=== PATIENT | male | born 1960 | race Caucasian/White ===

== ENCOUNTER 2019-08-22 06:04 | Inpatient (IN) | payer OTHER ==
--- NOTE | 2019-08-19 10:57 | PCM.PREANE ---
Preanesthetic Assessment - Anesthesia/Transfusion/Family Hx Anesthesia History: Prior Anesthesia Without Reaction Family History of Anesthesia Reaction: No Transfusion History: No Prior Transfusion(s) Intubation History: Unknown - Review of Systems General: No Symptoms Pulmonary: No Symptoms (ETOH: occasionally), Cough Cardiovascular: No Symptoms (Elevated cholesterol) Gastrointestinal: No Symptoms Neurological: No Symptoms (Back Surgery: [id number]) Other: Reports: Sinus Problem (history of nose surgeries/no problems) - Physical Assessment NPO Status Date: 08/21/19 NPO Status Time: 21:30 Vital Signs: HR:71 BP:155/93 Resp:16 Temp:97.4 Sat:97% Height: 1.74 m Weight: 92.986 kg ASA Class: 2 Mental Status: Alert & Oriented x3 Airway Class: Mallampati = 2 Dentition: Reports: Normal Dentition, [place](s), [place] Thyro-Mental Finger Breadths: 3 Mouth Opening Finger Breadths: 3 ROM/Head Extension: Full Lungs: Clear to Auscultation, Normal Respiratory Effort Cardiovascular: Regular Rate, Regular Rhythm, No Murmurs - Lab Values: All labs reviewed and noted and within acceptable ranges to proceed with scheduled procedure. - Imaging/EKG Impressions: EKG: SR rate=69 CXR: negative Echocardiogram:EF= 50-55%, Grade I diastolic dysfunction, mildly dilated left atrium. - Allergies Allergies/Adverse Reactions: Allergies Allergy/AdvReac Type Severity Reaction Status Date / Time No Known Allergies Allergy Verified 08/19/19 15:14 - Anesthesia Plan Pre-Op Medication Ordered: Other (PreOp Meds:lyrica, tylenol, oxycodone all P.O. at 0625) - Acknowledgements Anesthesia Type Planned: Spinal (Right Adductor Canal Block under US guidance for post operative pain control requested by Dr. Quach.) Pt an Appropriate Candidate for the Planned Anesthesia: Yes Alternatives and Risks of Anesthesia Discussed w Pt/Guardian: Yes Pt/Guardian Understands and Agrees with Anesthesia Plan: Yes PreAnesthesia Questionnaire Other HEENT History: wears glasses - Past Surgical History Other Musculoskeletal Surgeries/Procedures:: osteoarthritis L knee, L knee pain , R hip pain, bunionectomy L foot, Left knee surgery x 2, nose surgery x 4, R rotator cuff repair 1997, back surgery x 3. - HOME MEDS Home Medications: Home Meds Fish Oil/[place]-3 Fatty Acids [Fish Oil 1,000 MG] 1,000 mg PO DAILY 08/10/15 [ History] Cholecalciferol (Vitamin D3) [Vitamin D3] 5,000 unit PO DAILY 08/19/19 [History] Multivitamin [Daily Multiple Vitamin] 2 tab PO DAILY 08/19/19 [History] traMADol [Ultram] 50 mg PO Q4H PRN 08/19/19 [History] - CURRENT (IN HOUSE) MEDS Current Meds: Current Medications Lactated Ringer's (Ringers, Lactated) 1,000 mls @ 125 mls/hr IV ASDIRECTED MAICOL Stop: 08/22/19 23:00 Lidocaine/Sodium Bicarbonate (Buffered Lidocaine 1% In Ns 8.4%) 0.25 ml IDERM ONETIME PRN PRN Reason: Prior to IV Start Stop: 08/22/19 18:00 Sodium Chloride (Saline Flush) 10 ml FLUSH ASDIRECTED PRN PRN Reason: Keep Vein Open Stop: 08/22/19 18:00
[~2019-08-22 06:04] MED LIST: EPINEPHrine 1 MG/ML SDV ONE; Lidocaine 1%/Sod Bicarbonate in NS 8.4% 1 ML Syringe IDERM PRN; Pregabalin 25 MG Cap PO SCH; Ropivacaine 0.5% 5 MG/ML 30 ML SDV ONE; Sodium Chloride 0.9% 10 ML Syringe FLUSH PRN
[2019-08-22] MEDS ORDERED: Acetaminophen 325 MG Tab PO SCH (06:05)
[2019-08-22] MEDS ORDERED: oxyCODONE ER 10 MG TAB.ER PO SCH (06:06)
[2019-08-22] MEDS ORDERED: Lactated Ringers 1,000 ML ONE ×2 (06:23→08:13)
[2019-08-22] MEDS ORDERED: Lidocaine 1% 6 ML ONE (06:23)
[2019-08-22] MEDS ORDERED: Ketorolac 30 MG/ML SDV ONE (06:23)
[2019-08-22] MEDS ORDERED: Propofol 200 MG/20 ML SDV ONE ×2 (06:23→07:54)
[2019-08-22] MEDS ORDERED: Phenylephrine/Normal Saline 100 MCG/ML 10 ML Syringe ONE (06:23)
[2019-08-22] MEDS ORDERED: ceFAZolin 1 GM Vial ONE (06:23)
[2019-08-22] MEDS ORDERED: Ondansetron 4 MG/2 ML SDV ONE (06:23)
[2019-08-22] MEDS ORDERED: Midazolam 1 MG/ML 2 ML SDV ONE (06:24)
[2019-08-22] MEDS ORDERED: Ketamine 500 mg/10 ML MDV ONE (06:24)
[2019-08-22] MEDS ORDERED: fentaNYL 100 MCG/2 ML SDV ONE (06:24)
[2019-08-22] MEDS: Lactated Ringers 1,000 ML IV SCH ×3 (06:39→17:51)
[2019-08-22] MEDS ORDERED: Bisacodyl 5 MG Tab PO PRN (06:42)
[2019-08-22] MEDS ORDERED: Morphine 8 MG, EPINEPHrine 0.3 MG, Cefuroxime 750 MG, Ketorolac 30 MG, Sodium Chloride ... ONE ×5 (06:42)
[2019-08-22] MEDS ORDERED: Morphine 2 MG/ML Syringe IVPUSH PRN (06:42)
[2019-08-22] MEDS ORDERED: Ondansetron 4 MG/2 ML SDV IVPUSH PRN ×2 (06:42→07:34)
[2019-08-22] MEDS ORDERED: Naloxone 0.4 MG/ML SDV IVPUSH PRN (06:42)
[2019-08-22] MEDS ORDERED: Magnesium Hydroxide 400 MG/5 ML Susp 30 ML Cup PO PRN (06:42)
[2019-08-22] MEDS ORDERED: Sennosides 8.6 MG Tab PO PRN (06:42)
[2019-08-22] MEDS ORDERED: diphenhydrAMINE 50 MG/ML SDV IVPUSH PRN (07:34)
[2019-08-22] MEDS ORDERED: ePHEDrine 50 MG/ML SDV IVPUSH PRN (07:34)
[2019-08-22] MEDS ORDERED: HYDROmorphone 0.5 MG/0.5 ML Syringe IVPUSH PRN (07:34)
[2019-08-22] MEDS ORDERED: fentaNYL 100 MCG/2 ML SDV IVPUSH PRN (07:34)
[2019-08-22] MEDS ORDERED: Phenylephrine 1 MG in Sodium Chloride 0.9% 10 ML IV SCH (07:45)
[2019-08-22] MEDS ORDERED: ePHEDrine/Normal Saline 25 MG/5 ML Syringe ONE (08:01)
[2019-08-22] MEDS: Iodine/Sodium Iodide 2% Tincture 30 ML Bottle ONE ×2 (08:04→08:18)
[2019-08-22] MEDS: ceFAZolin 1 GM Vial ONE ×2 (08:05→08:23)
[2019-08-22] MEDS: Morphine 8 MG, EPINEPHrine 0.3 MG, Cefuroxime 750 MG, Ketorolac 30 MG, Sodium Chloride ... ONE ×15 (08:05→11:35)
[2019-08-22] MEDS: Vancomycin 1 GM SDV ONE ×2 (08:06→08:31)
[2019-08-22] MEDS: Bupivacaine 0.25% 10 ML SDV ONE ×4 (08:06→08:49)
[2019-08-22] MEDS: Triamcinolone Acetonide 40 MG/ML 1 ML MDV ONE ×4 (08:06→08:49)
--- NOTE | 2019-08-22 09:09 | PCM.POSTAN ---
POST ANESTHESIA ASSESSMENT - MENTAL STATUS Mental Status: Alert - VITAL SIGNS Vital Signs: Last Vital Signs Temp 36.7 C 08/22/19 09:02 Pulse 71 08/22/19 09:02 Resp 13 08/22/19 09:02 BP 114/61 08/22/19 09:02 Pulse Ox 97 08/22/19 09:02 - RESPIRATORY Respiratory Status: Respiratory Rate WNL, Airway Patent, O2 Saturation Stable, Supplemental Oxygen - CARDIOVASCULAR CV Status: Pulse Rate WNL, Blood Pressure Stable - GASTROINTESTINAL GI Status: No Symptoms - POST OP HYDRATION Hydration Status: Adequate & Stable
[2019-08-22] MEDS: Acetaminophen/oxyCODONE 325-5 MG Tab PO PRN ×4 (09:30→21:57)
--- NOTE | 2019-08-22 09:37 | PCM.SN ---
- Free Text/Narrative Note: Right selective femoral nerve block at the adductor canal for post-procedure pain control under US guidance requested by Dr. Quach. Time Out: 916 Start: 916 End: 924 Chart reviewed. Consent signed. Questions answered. Appropriate monitors applied. Time out performed. Right mid-shaft femur identified with ultrasound, scanning medially of femur, the femoral artery in the adductor canal visualized , and the femoral nerve located laterally to the artery. The skin was prepped lateral to the ultrasound probe with chlorahexadine times two. The 21ga 4 insulated block needle was inserted under direct ultrasound guidance into the adductor canal. 25mL of 0.5% ropivacaine with 1:200,000 epinephrine was injected circumferentially around the nerve with intermittent negative aspiration noted. Patient tolerated the procedure well. Sterile technique noted along with sterile gloves, mask, and sterile probe cover. See picture on progress note and vital signs on nurses notes. Block completed in PACU. Apryl Moy CRNA
--- NOTE | 2019-08-22 11:13 | CR ---
Right knee: AP and crosstable lateral views of the right knee were obtained. Comparison: No prior knee study. Knee prosthesis is seen. Components are aligned. Soft tissue air is noted from the surgical procedure. Underlying bony structures are intact. Impression: 1. Satisfactory postoperative radiographic appearance of recently placed right knee prosthesis. Diagnostic code #2
[2019-08-22] MEDS: ceFAZolin 2 GM in Premix Bag 1 BAG IV SCH ×3 (11:30→21:58)
[2019-08-22] MEDS: Famotidine 20 MG Tab PO SCH ×2 (11:31→17:45)
[2019-08-22] MEDS: Docusate Sodium 100 MG Cap PO SCH (20:27)
[2019-08-22] MEDS: Ketorolac 15 MG/ML SDV IVPUSH PRN (20:27)
[2019-08-22] MEDS: Cyclobenzaprine 10 MG Tab PO PRN (20:27)
[2019-08-23] MEDS: Acetaminophen/oxyCODONE 325-5 MG Tab PO PRN ×3 (02:20→12:54)
[2019-08-23] MEDS: Ketorolac 15 MG/ML SDV IVPUSH PRN (06:09)
[2019-08-23] MEDS: Famotidine 20 MG Tab PO SCH (06:09)
[2019-08-23] MEDS ORDERED: ceFAZolin 2 GM in Premix Bag 1 BAG IV ONE (07:00)
--- NOTE | 2019-08-23 08:01 | PCM.SURGPN ---
- General Info Date of Service: 08/23/19 POD#: 1 Functional Status: Reports: Pain Controlled, Tolerating Diet, Ambulating, Urinating, Incentive Spirometry, Other (Nursing states the pt has been doing very well. The pt states he is doing well and his pain is controlled.) - Patient Data Vitals - Most Recent: Last Vital Signs Temp 97.7 F 08/23/19 07:39 Pulse 62 08/23/19 07:39 Resp 20 08/23/19 07:39 BP 118/69 08/23/19 07:39 Pulse Ox 97 08/23/19 07:39 Weight - Most Recent: 212 lb 4.8 oz I&O - Last 24 Hours: Intake & Output 08/22/19 08/23/19 08/23/19 22:59 06:59 14:59 Intake Total 1812 1886 Output Total 1000 3600 Balance 812 -1714 Lab Results Last 24 Hrs: Laboratory Results - last 24 hr 08/23/19 08/23/19 Range/Units 04:53 04:53 WBC 14.44 H (4.23-9.07) K/mm3 RBC 4.35 L (4.63-6.08) M/mm3 Hgb 12.7 L (13.7-17.5) gm/dl Hct 37.7 L (40.1-51.0) % MCV 86.7 (79.0-92.2) fl MCH 29.2 (25.7-32.2) pg MCHC 33.7 (32.2-35.5) g/dl RDW Std Deviation 39.6 (35.1-43.9) fL Plt Count 216 (163-337) K/mm3 MPV 10.7 (9.4-12.3) fl Sodium 135 L (136-145) mEq/L Potassium 4.6 (3.5-5.1) mEq/L Chloride 101 (98-107) mEq/L Carbon Dioxide 25 (21-32) mEq/L Anion Gap 13.6 (5-15) BUN 19 H (7-18) mg/dL Creatinine 1.1 (0.7-1.3) mg/dL Est Cr Clr Drug Dosing 69.37 mL/min Estimated GFR (MDRD) > 60 (>60) mL/min BUN/Creatinine Ratio 17.3 (14-18) Glucose 147 H (80-115) mg/dL Calcium 9.2 (8.5-10.1) mg/dL Total Bilirubin 0.9 (0.2-1.0) mg/dL AST 17 (15-37) U/L ALT 29 (16-63) U/L Alkaline Phosphatase 72 (46-116) U/L Total Protein 6.6 (6.4-8.2) g/dl Albumin 3.5 (3.4-5.0) g/dl Globulin 3.1 gm/dL Albumin/Globulin Ratio 1.1 (1-2) Med Orders - Current: Current Medications Aspirin (Ecotrin) 325 mg PO BID [facility] Bisacodyl (Dulcolax) 5 mg PO DAILY PRN PRN Reason: Constipation Cholecalciferol (Vitamin D3) 5,000 unit PO DAILY [facility] Cyclobenzaprine HCl (Flexeril) 10 mg PO TID PRN PRN Reason: Spasms Last Admin: 08/22/19 20:27 Dose: 10 mg Docusate Sodium (Colace) 100 mg PO BID [facility] Last Admin: 08/22/19 20:27 Dose: 100 mg Famotidine (Pepcid) 20 mg PO Q12H [facility] Last Admin: 08/23/19 06:09 Dose: 20 mg Ketorolac Tromethamine (Toradol) 15 mg IVPUSH Q6H PRN PRN Reason: Pain Last Admin: 08/23/19 06:09 Dose: 15 mg Magnesium Hydroxide (Milk Of Magnesia) 30 ml PO BID PRN PRN Reason: Constipation Morphine Sulfate (Morphine) 2 mg IVPUSH Q2H PRN PRN Reason: Breakthrough Pain Multivitamins (Thera) 2 each PO DAILY [facility] Naloxone HCl (Narcan) 0.1 mg IVPUSH Q5M PRN PRN Reason: Oversedation Ondansetron HCl (Zofran) 4 mg IVPUSH Q6H PRN PRN Reason: Nausea/Vomiting Oxycodone/Acetaminophen (Percocet 325-5 Mg) 1 - 2 tab PO Q4H PRN PRN Reason: Pain Last Admin: 08/23/19 06:09 Dose: 2 tab Senna (Senna) 8.6 mg PO BID PRN PRN Reason: Constipation Discontinued Medications Acetaminophen (Tylenol) 975 mg PO NOW [facility] Stop: 08/22/19 12:06 Last Admin: 08/22/19 06:25 Dose: 975 mg Bupivacaine HCl (Sensorcaine-Mpf 0.25%) Confirm Administered Dose 40 ml .ROUTE .STK-MED ONE Stop: 08/22/19 06:21 Last Admin: 08/22/19 08:49 Dose: 4 ml Cefazolin Sodium (Ancef) Confirm Administered Dose 2 gm .ROUTE .STK-MED ONE Stop: 08/22/19 06:20 Last Admin: 08/22/19 08:23 Dose: 2 gm Cefazolin Sodium (Ancef) Confirm Administered Dose 2 gm .ROUTE .STK-MED ONE Stop: 08/22/19 06:24 Morphine Sulfate 8 mg/Epinephrine HCl 0.3 mg/Cefuroxime Sodium 750 mg/Ketorolac Tromethamine 30 mg/Sodium Chloride 27.9 ml 0 mg .XX ONETIME ONE Stop: 08/22/19 08:01 Last Admin: 08/22/19 11:35 Dose: Not Given Diphenhydramine HCl (Benadryl) 25 mg IVPUSH Q6H PRN PRN Reason: pruritis Stop: 08/22/19 10:00 Ephedrine Sulfate (Ephedrine Sulfate) 5 mg IVPUSH ASDIRECTED PRN PRN Reason: Hypotension Stop: 08/22/19 10:00 Ephedrine Sulfate (Ephedrine In Ns) Confirm Administered Dose 25 mg .ROUTE .STK- MED ONE Stop: 08/22/19 08:02 Epinephrine HCl (Adrenalin) Confirm Administered Dose 1 mg .ROUTE .STK-MED ONE Stop: 08/22/19 05:59 Fentanyl (Sublimaze) Confirm Administered Dose 100 mcg .ROUTE .STK-MED ONE Stop: 08/22/19 06:25 Fentanyl (Sublimaze) 50 mcg IVPUSH Q5M PRN PRN Reason: Pain Stop: 08/22/19 10:00 Hydromorphone HCl (Dilaudid) 0.5 mg IVPUSH Q15M PRN PRN Reason: Pain (severe 7-10) Stop: 08/22/19 10:00 Lactated Ringer's (Ringers, Lactated) 1,000 mls @ 125 mls/hr IV ASDIRECTED MAICOL Stop: 08/22/19 23:00 Last Admin: 08/22/19 17:51 Dose: 125 mls/hr Lidocaine HCl (Xylocaine-Mpf 1%) Confirm Administered Dose 6 mls @ as directed .ROUTE .STK-MED ONE Stop: 08/22/19 06:24 Lactated Ringer's (Ringers, Lactated) Confirm Administered Dose 1,000 mls @ as directed .ROUTE .STK-MED ONE Stop: 08/22/19 06:24 Cefazolin Sodium/Dextrose 2 gm (/ Premix) 50 mls @ 100 mls/hr IV Q8H MAICOL Stop: 08/22/19 23:14 Last Admin: 08/22/19 21:58 Dose: 100 mls/hr Phenylephrine HCl 1 mg/ Sodium (Chloride) 10.1 mls @ 1 mls/sec IV TITRATE MAICOL; Protocol Stop: 08/22/19 10:00 Lactated Ringer's (Ringers, Lactated) Confirm Administered Dose 1,000 mls @ as directed .ROUTE .STK-MED ONE Stop: 08/22/19 08:14 Cefazolin Sodium/Dextrose 2 gm (/ Premix) 50 mls @ 100 mls/hr IV ONETIME ONE Stop: 08/23/19 07:29 Last Admin: 08/23/19 06:11 Dose: 100 mls/hr Iodine (Iodine 2% Mild Tincture) Confirm Administered Dose 30 ml .ROUTE .STK- MED ONE Stop: 08/22/19 06:21 Last Admin: 08/22/19 08:18 Dose: 18 ml Ketamine HCl (Ketalar) Confirm Administered Dose 500 mg .ROUTE .STK-MED ONE Stop: 08/22/19 06:25 Ketorolac Tromethamine (Toradol) Confirm Administered Dose 30 mg .ROUTE .STK- MED ONE Stop: 08/22/19 06:24 Lidocaine/Sodium Bicarbonate (Buffered Lidocaine 1% In Ns 8.4%) 0.25 ml IDERM ONETIME PRN PRN Reason: Prior to IV Start Stop: 08/22/19 18:00 Last Admin: 08/22/19 06:38 Dose: 0.25 ml Midazolam HCl (Versed 1 Mg/Ml) Confirm Administered Dose 2 mg .ROUTE .STK-MED ONE Stop: 08/22/19 06:25 Ondansetron HCl (Zofran) Confirm Administered Dose 4 mg .ROUTE .STK-MED ONE Stop: 08/22/19 06:24 Ondansetron HCl (Zofran) 4 mg IVPUSH ONETIME PRN PRN Reason: Nausea/Vomiting Stop: 08/22/19 10:00 Oxycodone HCl (Oxycontin) 10 mg PO ONETIME MAICOL Stop: 08/22/19 12:06 Last Admin: 08/22/19 06:25 Dose: 10 mg Phenylephrine HCl (Phenylephrine In Ns 100 Mcg/Ml) Confirm Administered Dose 1 mg .ROUTE .STK-MED ONE Stop: 08/22/19 06:24 Pregabalin (Lyrica) 50 mg PO ONETIME MAICOL Stop: 08/22/19 12:06 Last Admin: 08/22/19 06:25 Dose: 50 mg Propofol (Diprivan 20 Ml) Confirm Administered Dose 400 mg .ROUTE .STK-MED ONE Stop: 08/22/19 06:24 Propofol (Diprivan 20 Ml) Confirm Administered Dose 400 mg .ROUTE .STK-MED ONE Stop: 08/22/19 07:55 Ropivacaine (Naropin 0.5%) Confirm Administered Dose 30 ml .ROUTE .STK-MED ONE Stop: 08/22/19 05:59 Sodium Chloride (Saline Flush) 10 ml FLUSH ASDIRECTED PRN PRN Reason: Keep Vein Open Stop: 08/22/19 18:00 Tranexamic Acid (Cyklokapron) Confirm Administered Dose 1,000 mg .ROUTE .STK- MED ONE Stop: 08/22/19 06:20 Triamcinolone Acetonide (Kenalog-40) Confirm Administered Dose 80 mg .ROUTE .STK -MED ONE Stop: 08/22/19 06:20 Last Admin: 08/22/19 08:49 Dose: 80 mg Vancomycin HCl (Vancomycin) Confirm Administered Dose 1 gm .ROUTE .STK-MED ONE Stop: 08/22/19 06:20 Last Admin: 08/22/19 08:31 Dose: 1 gm - Exam Wound/Incisions: Dressing Dry and Intact General: Alert, Cooperative, No Acute Distress Lungs: Normal Respiratory Effort Extremities: Other (NVS intact for BLE. Sahra's negative.) - Problem List Review Problem List Initiated/Reviewed/Updated: Yes - My Orders Last 24 Hours: Active Orders 24 hr Category Date Time Status Communication Order [RC] ROUTINE Care 08/22/19 07:33 Active Notify Provider [RC] ASDIRECTED Care 08/22/19 07:34 Active Oxygen Therapy [RC] ASDIRECTED Care 08/22/19 07:33 Active Pulse Oximetry [RC] ASDIRECTED Care 08/22/19 07:33 Active Ready for Discharge [RC] PER UNIT ROUTINE Care 08/23/19 07:59 Ordered Vital Signs [RC] Q15M Care 08/22/19 07:33 Inactive Regular Diet [DIET] Diet 08/22/19 Lunch Active Aspirin [Ecotrin] Med 08/23/19 09:00 Active 325 mg PO BID Cholecalciferol (Vitamin D3) [Vitamin D3] Med 08/23/19 09:00 Active 5,000 unit PO DAILY Docusate Sodium [Colace] Med 08/22/19 21:00 Active 100 mg PO BID Multivitamins,Therapeutic [Thera] Med 08/23/19 09:00 Active 2 each PO DAILY Medication Orders Aspirin (Ecotrin) 325 mg PO BID [facility] Bisacodyl (Dulcolax) 5 mg PO DAILY PRN PRN Reason: Constipation Cholecalciferol (Vitamin D3) 5,000 unit PO DAILY [facility] Cyclobenzaprine HCl (Flexeril) 10 mg PO TID PRN PRN Reason: Spasms Last Admin: 08/22/19 20:27 Dose: 10 mg Docusate Sodium (Colace) 100 mg PO BID MAICOL Last Admin: 08/22/19 20:27 Dose: 100 mg Famotidine (Pepcid) 20 mg PO Q12H MAICOL Last Admin: 08/23/19 06:09 Dose: 20 mg Admin: 08/22/19 17:45 Dose: 20 mg Admin: 08/22/19 11:31 Dose: Ketorolac Tromethamine (Toradol) 15 mg IVPUSH Q6H PRN PRN Reason: Pain Last Admin: 08/23/19 06:09 Dose: 15 mg Admin: 08/22/19 20:27 Dose: 15 mg Magnesium Hydroxide (Milk Of Magnesia) 30 ml PO BID PRN PRN Reason: Constipation Morphine Sulfate (Morphine) 2 mg IVPUSH Q2H PRN PRN Reason: Breakthrough Pain Multivitamins (Thera) 2 each PO DAILY [facility] Naloxone HCl (Narcan) 0.1 mg IVPUSH Q5M PRN PRN Reason: Oversedation Ondansetron HCl (Zofran) 4 mg IVPUSH Q6H PRN PRN Reason: Nausea/Vomiting Oxycodone/Acetaminophen (Percocet 325-5 Mg) 1 - 2 tab PO Q4H PRN PRN Reason: Pain Last Admin: 08/23/19 06:09 Dose: 2 tab Admin: 08/23/19 02:20 Dose: 2 tab Admin: 08/22/19 21:57 Dose: 2 tab Admin: 08/22/19 17:45 Dose: 2 tab Admin: 08/22/19 13:35 Dose: 2 tab Admin: 08/22/19 09:30 Dose: 2 tab Senna (Senna) 8.6 mg PO BID PRN PRN Reason: Constipation - Assessment Assessment (Free Text/Narrative):: POD#1 - right TKA with left shoulder cortisone injection - Plan Plan (Free Text/Narrative):: 1. Hgb 12.7. 2. 325mg ASA PO BID, frequent mobility, TEDs for VTE prophylaxis. 3. Discharge to home today. 4. The pt will attend outpatient therapy. The pt's case was discussed with Dr. Quach.
--- NOTE | 2019-08-23 08:03 | PCM.DCSUM1 ---
Discharge Summary - Hospital Course Brief History: Royer is a 59 yo male who underwent right TKA with left shoulder cortisone injection with Dr. Quach on 08-22-2019. The procedure was completed under spinal anesthesia with MAC and the pt received a post-op adductor canal block. The pt tolerated the procedure well and was admitted to the Medical- Surgical Unit. The pt's Hospital course was uneventful. The pt's Hgb on POD#1 was 12.7. On POD#1, 325mg ASA BID was initiated for VTE prophylaxis. SCDs and TEDs were also ordered. A Mepilex dressing was placed at the incision site at the time of surgery and remained clean and dry. The pt participated in P.T. and O.T. and progressed well. The pt was allowed to WBAT. On POD#1, the pt was deemed appropriate to discharge to home. - Discharge Data Discharge Date: 08/23/19 Discharge Disposition: Home, Self-Care 01 Condition: Good - Referral to Home Health Primary Care Physician: Chuck Velasco MD - Patient Summary/Data Consults: Consultations 08/22/19 06:42 OT Evaluation and Treatment [CONS] Routine PT Evaluation and Treatment [CONS] Routine - Patient Instructions Diet: Usual Diet as Tolerated Activity: Apply Ice, As Tolerated, Elevate Extremity, Full Weight Bearing Driving: Do Not Drive Showering/Bathing: May Shower Wound/Incision Care: Keep Operative Site/Wound Site Clean and Dry, Do NOT Change Dressing Notify Provider of: Fever, Increased Pain, Swelling and Redness, Drainage, Nausea and/or Vomiting Other/Special Instructions: Please get up and moving around EVERY HOUR while awake. This helps to prevent blood clots. Please use your walker and have help with mobility as needed. Take a short walk in your home every hour while awake. Please take 325mg Aspirin TWICE daily. The aspirin is being used for blood clot prevention and not for pain management so please do not miss a dose of the medication. You could use a medication like Pepcid or Tagamet and a medication like Prilosec or Nexium to protect your stomach while you are using the aspirin. At home, please complete the exercises that you learned during the Hospital stay. Schedule for physical therapy. Use the pain medication as needed. The medication may cause drowsiness and constipation. Contact your primary care provider for instructions if you are constipated. You may use a stool softener like docusate sodium or Colace 100mg twice daily and/or a laxative like Miralax daily for constipation. Increase your water and fiber intake while you are using the pain medication. Discontinue use of the pain medication as soon as able. Please do not use other medications that may cause drowsiness (other pain medications, anxiety pills, cold medications, sleeping pills, etc) while using the prescription pain medication. Do not use alcohol while using the pain medication. You may use acetaminophen or Tylenol for pain management, however, please ensure you are not using over 4000 mg or 4 grams of acetaminophen per day from all sources. Your pain medication has 325mg of acetaminophen per tablet. At this time, please do not use ibuprofen (Motrin, Advil) or naproxen (Aleve) for pain management as you are using the aspirin. When the aspirin course is completed in 4 to 6 weeks, you could use ibuprofen or naproxen for pain management (if this is allowed by your primary care provider). Wear the LIA hose during the day and you may remove these at night. Elevate the limb to decrease swelling. Place ice to the area often. Place a towel between your skin and the blue pad. Use the incentive spirometer often. Take deep breaths throughout the day. Please keep the dressing in place until follow-up. Notify the Clinic if the dressing becomes saturated. Increase your protein intake while you are healing. If you have diabetes, please closely monitor your blood sugars and notify your primary care provider with abnormal values. Elevated blood sugars increases the risk of infection. You may resume use of fish oil/omega in 2 weeks. Call the Clinic with questions or concerns - [phone]. - Discharge Plan *PRESCRIPTION DRUG MONITORING PROGRAM REVIEWED*: No *COPY OF PRESCRIPTION DRUG MONITORING REPORT IN PATIENT SHAILESH: No Prescriptions/Med Rec: Acetaminophen/oxyCODONE [Percocet 325-5 MG] 1 - 2 tab PO Q4H PRN #60 tablet PRN Reason: Pain Aspirin [Ecotrin EC] 325 mg PO BID #84 tab.ec Cyclobenzaprine [Flexeril] 10 mg PO TID PRN #40 tablet PRN Reason: Spasms Home Medications: Home Meds Cholecalciferol (Vitamin D3) [Vitamin D3] 5,000 unit PO DAILY 08/19/19 [History] Multivitamin [Daily Multiple Vitamin] 2 tab PO DAILY 08/19/19 [History] Acetaminophen/oxyCODONE [Percocet 325-5 MG] 1 - 2 tab PO Q4H PRN #60 tablet [Rx] Aspirin [Ecotrin EC] 325 mg PO BID #84 tab.ec 08/23/19 [Rx] Bisacodyl [Dulcolax] 5 mg PO DAILY PRN tablet 08/23/19 [Rx] Cyclobenzaprine [Flexeril] 10 mg PO TID PRN #40 tablet 08/23/19 [Rx] Docusate Sodium [Colace] 100 mg PO BID cap 08/23/19 [Rx] Famotidine [Pepcid] 20 mg PO Q12H tablet 08/23/19 [Rx] Magnesium Hydroxide [Milk of Magnesia] 30 ml PO BID PRN cup 08/23/19 [Rx] Sennosides [Senna] 8.6 mg PO BID PRN tablet 08/23/19 [Rx] Patient Handouts: Total Knee Replacement, [id number] Referrals: Jesi Bridges PA-C [Physician [facility]] - - Discharge Summary/Plan Comment DC Time >30 min.: No - Patient Data Vitals - Most Recent: Last Vital Signs Temp 97.7 F 08/23/19 07:39 Pulse 62 08/23/19 07:39 Resp 20 08/23/19 07:39 BP 118/69 08/23/19 07:39 Pulse Ox 97 08/23/19 07:39 Weight - Most Recent: 212 lb 4.8 oz I&O - Last 24 hours: Intake & Output 08/22/19 08/23/19 08/23/19 22:59 06:59 14:59 Intake Total 1812 1886 Output Total 1000 3600 Balance 812 -1714 Lab Results - Last 24 hrs: Laboratory Results - last 24 hr 08/23/19 08/23/19 Range/Units 04:53 04:53 WBC 14.44 H (4.23-9.07) K/mm3 RBC 4.35 L (4.63-6.08) M/mm3 Hgb 12.7 L (13.7-17.5) gm/dl Hct 37.7 L (40.1-51.0) % MCV 86.7 (79.0-92.2) fl MCH 29.2 (25.7-32.2) pg MCHC 33.7 (32.2-35.5) g/dl RDW Std Deviation 39.6 (35.1-43.9) fL Plt Count 216 (163-337) K/mm3 MPV 10.7 (9.4-12.3) fl Sodium 135 L (136-145) mEq/L Potassium 4.6 (3.5-5.1) mEq/L Chloride 101 (98-107) mEq/L Carbon Dioxide 25 (21-32) mEq/L Anion Gap 13.6 (5-15) BUN 19 H (7-18) mg/dL Creatinine 1.1 (0.7-1.3) mg/dL Est Cr Clr Drug Dosing 69.37 mL/min Estimated GFR (MDRD) > 60 (>60) mL/min BUN/Creatinine Ratio 17.3 (14-18) Glucose 147 H (80-115) mg/dL Calcium 9.2 (8.5-10.1) mg/dL Total Bilirubin 0.9 (0.2-1.0) mg/dL AST 17 (15-37) U/L ALT 29 (16-63) U/L Alkaline Phosphatase 72 (46-116) U/L Total Protein 6.6 (6.4-8.2) g/dl Albumin 3.5 (3.4-5.0) g/dl Globulin 3.1 gm/dL Albumin/Globulin Ratio 1.1 (1-2) Med Orders - Current: Current Medications Aspirin (Ecotrin) 325 mg PO BID [facility] Bisacodyl (Dulcolax) 5 mg PO DAILY PRN PRN Reason: Constipation Cholecalciferol (Vitamin D3) 5,000 unit PO DAILY [facility] Cyclobenzaprine HCl (Flexeril) 10 mg PO TID PRN PRN Reason: Spasms Last Admin: 08/22/19 20:27 Dose: 10 mg Docusate Sodium (Colace) 100 mg PO BID [facility] Last Admin: 08/22/19 20:27 Dose: 100 mg Famotidine (Pepcid) 20 mg PO Q12H [facility] Last Admin: 08/23/19 06:09 Dose: 20 mg Ketorolac Tromethamine (Toradol) 15 mg IVPUSH Q6H PRN PRN Reason: Pain Last Admin: 08/23/19 06:09 Dose: 15 mg Magnesium Hydroxide (Milk Of Magnesia) 30 ml PO BID PRN PRN Reason: Constipation Morphine Sulfate (Morphine) 2 mg IVPUSH Q2H PRN PRN Reason: Breakthrough Pain Multivitamins (Thera) 2 each PO DAILY [facility] Naloxone HCl (Narcan) 0.1 mg IVPUSH Q5M PRN PRN Reason: Oversedation Ondansetron HCl (Zofran) 4 mg IVPUSH Q6H PRN PRN Reason: Nausea/Vomiting Oxycodone/Acetaminophen (Percocet 325-5 Mg) 1 - 2 tab PO Q4H PRN PRN Reason: Pain Last Admin: 08/23/19 06:09 Dose: 2 tab Senna (Senna) 8.6 mg PO BID PRN PRN Reason: Constipation Discontinued Medications Acetaminophen (Tylenol) 975 mg PO NOW MAICOL Stop: 08/22/19 12:06 Last Admin: 08/22/19 06:25 Dose: 975 mg Bupivacaine HCl (Sensorcaine-Mpf 0.25%) Confirm Administered Dose 40 ml .ROUTE .STK-MED ONE Stop: 08/22/19 06:21 Last Admin: 08/22/19 08:49 Dose: 4 ml Cefazolin Sodium (Ancef) Confirm Administered Dose 2 gm .ROUTE .STK-MED ONE Stop: 08/22/19 06:20 Last Admin: 08/22/19 08:23 Dose: 2 gm Cefazolin Sodium (Ancef) Confirm Administered Dose 2 gm .ROUTE .STK-MED ONE Stop: 08/22/19 06:24 Morphine Sulfate 8 mg/Epinephrine HCl 0.3 mg/Cefuroxime Sodium 750 mg/Ketorolac Tromethamine 30 mg/Sodium Chloride 27.9 ml 0 mg .XX ONETIME ONE Stop: 08/22/19 08:01 Last Admin: 08/22/19 11:35 Dose: Not Given Diphenhydramine HCl (Benadryl) 25 mg IVPUSH Q6H PRN PRN Reason: pruritis Stop: 08/22/19 10:00 Ephedrine Sulfate (Ephedrine Sulfate) 5 mg IVPUSH ASDIRECTED PRN PRN Reason: Hypotension Stop: 08/22/19 10:00 Ephedrine Sulfate (Ephedrine In Ns) Confirm Administered Dose 25 mg .ROUTE .STK- MED ONE Stop: 08/22/19 08:02 Epinephrine HCl (Adrenalin) Confirm Administered Dose 1 mg .ROUTE .STK-MED ONE Stop: 08/22/19 05:59 Fentanyl (Sublimaze) Confirm Administered Dose 100 mcg .ROUTE .STK-MED ONE Stop: 08/22/19 06:25 Fentanyl (Sublimaze) 50 mcg IVPUSH Q5M PRN PRN Reason: Pain Stop: 08/22/19 10:00 Hydromorphone HCl (Dilaudid) 0.5 mg IVPUSH Q15M PRN PRN Reason: Pain (severe 7-10) Stop: 08/22/19 10:00 Lactated Ringer's (Ringers, Lactated) 1,000 mls @ 125 mls/hr IV ASDIRECTED [facility] Stop: 08/22/19 23:00 Last Admin: 08/22/19 17:51 Dose: 125 mls/hr Lidocaine HCl (Xylocaine-Mpf 1%) Confirm Administered Dose 6 mls @ as directed .ROUTE .STK-MED ONE Stop: 08/22/19 06:24 Lactated Ringer's (Ringers, Lactated) Confirm Administered Dose 1,000 mls @ as directed .ROUTE .STK-MED ONE Stop: 08/22/19 06:24 Cefazolin Sodium/Dextrose 2 gm (/ Premix) 50 mls @ 100 mls/hr IV Q8H [facility] Stop: 08/22/19 23:14 Last Admin: 08/22/19 21:58 Dose: 100 mls/hr Phenylephrine HCl 1 mg/ Sodium (Chloride) 10.1 mls @ 1 mls/sec IV TITRATE MAICOL; Protocol Stop: 08/22/19 10:00 Lactated Ringer's (Ringers, Lactated) Confirm Administered Dose 1,000 mls @ as directed .ROUTE .STK-MED ONE Stop: 08/22/19 08:14 Cefazolin Sodium/Dextrose 2 gm (/ Premix) 50 mls @ 100 mls/hr IV ONETIME ONE Stop: 08/23/19 07:29 Last Admin: 08/23/19 06:11 Dose: 100 mls/hr Iodine (Iodine 2% Mild Tincture) Confirm Administered Dose 30 ml .ROUTE .STK- MED ONE Stop: 08/22/19 06:21 Last Admin: 08/22/19 08:18 Dose: 18 ml Ketamine HCl (Ketalar) Confirm Administered Dose 500 mg .ROUTE .STK-MED ONE Stop: 08/22/19 06:25 Ketorolac Tromethamine (Toradol) Confirm Administered Dose 30 mg .ROUTE .STK- MED ONE Stop: 08/22/19 06:24 Lidocaine/Sodium Bicarbonate (Buffered Lidocaine 1% In Ns 8.4%) 0.25 ml IDERM ONETIME PRN PRN Reason: Prior to IV Start Stop: 08/22/19 18:00 Last Admin: 08/22/19 06:38 Dose: 0.25 ml Midazolam HCl (Versed 1 Mg/Ml) Confirm Administered Dose 2 mg .ROUTE .STK-MED ONE Stop: 08/22/19 06:25 Ondansetron HCl (Zofran) Confirm Administered Dose 4 mg .ROUTE .STK-MED ONE Stop: 08/22/19 06:24 Ondansetron HCl (Zofran) 4 mg IVPUSH ONETIME PRN PRN Reason: Nausea/Vomiting Stop: 08/22/19 10:00 Oxycodone HCl (Oxycontin) 10 mg PO ONETIME MAICOL Stop: 08/22/19 12:06 Last Admin: 08/22/19 06:25 Dose: 10 mg Phenylephrine HCl (Phenylephrine In Ns 100 Mcg/Ml) Confirm Administered Dose 1 mg .ROUTE .STK-MED ONE Stop: 08/22/19 06:24 Pregabalin (Lyrica) 50 mg PO ONETIME MAICOL Stop: 08/22/19 12:06 Last Admin: 08/22/19 06:25 Dose: 50 mg Propofol (Diprivan 20 Ml) Confirm Administered Dose 400 mg .ROUTE .STK-MED ONE Stop: 08/22/19 06:24 Propofol (Diprivan 20 Ml) Confirm Administered Dose 400 mg .ROUTE .STK-MED ONE Stop: 08/22/19 07:55 Ropivacaine (Naropin 0.5%) Confirm Administered Dose 30 ml .ROUTE .STK-MED ONE Stop: 08/22/19 05:59 Sodium Chloride (Saline Flush) 10 ml FLUSH ASDIRECTED PRN PRN Reason: Keep Vein Open Stop: 08/22/19 18:00 Tranexamic Acid (Cyklokapron) Confirm Administered Dose 1,000 mg .ROUTE .STK- MED ONE Stop: 08/22/19 06:20 Triamcinolone Acetonide (Kenalog-40) Confirm Administered Dose 80 mg .ROUTE .STK -MED ONE Stop: 08/22/19 06:20 Last Admin: 08/22/19 08:49 Dose: 80 mg Vancomycin HCl (Vancomycin) Confirm Administered Dose 1 gm .ROUTE .STK-MED ONE Stop: 08/22/19 06:20 Last Admin: 08/22/19 08:31 Dose: 1 gm
--- NOTE | 2019-08-23 08:13 | PCM48HPAN ---
Post Anesthesia Note - EVALUATION WITHIN 48HRS OF ANESTHETIC Vital Signs in Normal Range: Yes Patient Participated in Evaluation: Yes Respiratory Function Stable: Yes Airway Patent: Yes Cardiovascular Function Stable: Yes Hydration Status Stable: Yes Pain Control Satisfactory: Yes Nausea and Vomiting Control Satisfactory: Yes Mental Status Recovered: Yes Vital Signs: Last Vital Signs Temp 36.5 C 08/23/19 07:39 Pulse 62 08/23/19 07:39 Resp 20 08/23/19 07:39 BP 118/69 08/23/19 07:39 Pulse Ox 97 08/23/19 07:39 - COMMENTS/OBSERVATIONS Free Text/Narrative:: no anesthesia complications noted
[2019-08-23] MEDS: Cyclobenzaprine 10 MG Tab PO PRN (08:52)
[2019-08-23] MEDS: Docusate Sodium 100 MG Cap PO SCH (08:53)
[2019-08-23] MEDS ORDERED: Multivitamins,Therapeutic Tab PO SCH (09:00)
[2019-08-23] MEDS ORDERED: Cholecalciferol (Vitamin D3) 5,000 UNIT Tab PO SCH (09:00)
[2019-08-23] MEDS ORDERED: Aspirin 325 MG Tab.EC PO SCH (09:00)
[2019-08-23 11:48] VITALS: BP 119/68; PULSE 72
--- NOTE | 2019-08-24 13:02 | PCM.OPNOTE ---
- General Post-Op/Procedure Note Date of Surgery/Procedure: 08/22/19 Operative Procedure(s): right total knee arthroplasty with left shoulder injection Pre Op Diagnosis: right knee osteoarthrosis and left shoulder pain Post-Op Diagnosis: Same Anesthesia Technique: Local, MAC, Spinal Primary Surgeon: Praveen Quach Anesthesia Provider: Apryl oMy Museum [employer] Scheduler: Jesi Bridges Museum [employer] Scheduler: Leanne Shaw EBL in mLs: 300 Complications: None Condition: Good Free Text/Narrative:: Intake & Output 08/23/19 08/24/19 08/24/19 22:59 06:59 14:59 Intake Total 480 Balance 480 5/5 10mm 35x10
--- NOTE | 2019-08-24 13:26 | OR ---
DATE OF OPERATION: 08/22/2019 SURGEON: Praveen Quach MD OPERATION PERFORMED: Right total knee arthroplasty with left shoulder injection. PREOPERATIVE DIAGNOSIS: Right knee osteoarthrosis and left shoulder pain. POSTOPERATIVE DIAGNOSIS: Right knee osteoarthrosis and left shoulder pain. ANESTHESIA: Local MAC with spinal. ANESTHESIA PROVIDER: Apryl Moy CRNA. TENNIS PROFESSIONAL: Jesi Bridges PA-C, and Leanne Shaw LPN. ESTIMATED BLOOD LOSS: 300 mL. COMPLICATIONS: None. CONDITION: Stable. IMPLANTS: 1. Jair size 5 press-fit CR femur. 2. Onida size 5 press-fit tibial baseplate. 3. Onida size 5, 10 mm CS polyethylene insert. 4. 35 x 10 mm press-fit asymmetric patella. DESCRIPTION OF PROCEDURE: The patient was identified in the preop holding area. Proper site was marked and identified by the surgeon. The patient was taken back to the operating theater. After adequate anesthesia, the patient's right lower extremity had a nonsterile tourniquet applied and it was sterilely prepped and draped in the usual sterile fashion. OR time-out was performed. The patient received 2 g IV Ancef. At this time, the right lower extremity was exsanguinated. Tourniquet was insufflated to 300 mmHg. Standard medial parapatellar incision was made. Medial parapatellar arthrotomy was created. Deep fibers of the MCL were raised and anterior fat pad was resected. At this time, attention was turned to the patella. Patella measured 25, it was resected to a 15 for 35 x 10 mm patella. Drill holes were then drilled and found to be in adequate position. The drill was then drilled in the distal femur and the intramedullary distal femoral cutting guide was then placed. 8 mm was resected off the distal femur and was found to be an adequate resection. Sizing guide was placed. It was found to be a size 5 press-fit CR femur that was shown on the implant record at the beginning of this dictation. The drill holes were drilled for the epicondylar axis using Whitesides line and epicondyles as reference. At this time, the 4-in- 1 cutting block was placed. An anterior posterior and anterior and posterior chamfer cuts were then completed. Attention was turned to the tibia. The posterior medial lateral retractors were placed. The extramedullary tibial guide was placed. It was placed in the old footprint of the ACL. It was aligned with the center of the ankle and 0 degrees of slope, 9 mm was then resected off the unaffected side. There was found to be an acceptable reduction. At this time, posterior osteophytes were removed along with medial and lateral meniscus. A trial implant was placed with a correct sized tibia that was mentioned at the beginning of the dictation. A Jair size 5, 10 mm CS polyethylene insert was then placed. The patient's knee was brought through range of motion. The patella was tracking centrally and was stable to varus and valgus stress. Alignment was found to be roughly at 0 degrees. The tibia was stamped and drilled in proper rotation. The universal tibial base plate was impacted in place. Next, the Jair size 5 press-fit CR femur impacted into place and the Jair size 5, 10 mm CS polyethylene insert was placed. The patient's knee was brought into full extension. The patella was then press-fit in place at this time. Tourniquet was deflated. One liter dilute Betadine solution was irrigated through the knee along with 3 L of pulse lavage irrigation with Ancef. Periarticular injection was then completed. The patient's knee was brought through a range of motion. Once the cement had time to set up and it was found to be stable to varus valgus stress, the patella was tracking centrally with full range of motion. At this time, a #2 barbed suture was used for closure of the medial parapatellar arthrotomy. Topical tranexamic acid was placed. 2-0 Vicryl was used subcutaneously, Prineo was used for the skin. The patient tolerated the procedure well and was sent to the PACU in stable condition. After this was completed under sterile technique, 2 mL of 40 mg Kenalog and 4 mL of 0.25% Marcaine were injected to left shoulder. ALMA /[id number]
== END 2019-08-23 14:31 | disposition home or self-care (01) | DRG 470 ==
LOC: JD.MS 06:04 → EDSTATUS 07:30
PROVIDERS: ADMIT Orthopaedic Surgery; ATTEND Orthopaedic Surgery
PROC: 0SRC0JA Replacement of Right Knee Joint with Synthetic Substitute, Uncemented, Open Approach (ICD-10-PCS; principal; 2019-08-22)
DX: M17.11 Unilateral primary osteoarthritis, right knee (principal); E78.5 Hyperlipidemia, unspecified; Z96.641 Presence of right artificial hip joint; Z96.652 Presence of left artificial knee joint
CPT/HCPCS: 36415; 73560-26-RT; 73560-RT; 80053; 85027; 97110-GP; 97116-GP; 97161-GP; 97165-GO; 97535-GO; A9270-GY; C1776; J0171; J0690; J0697; J1885; J2001; J2250; J2270; J2370; J2405; J2704; J2795; J3010; J3301; J3370; J3490; J7050; J7120

== ENCOUNTER 2020-03-01 08:32 | Inpatient (IN) | payer OTHER ==
[~2020-03-01 08:32] MED LIST changes: +Acetaminophen 325 MG Tab PO SCH; +Bisacodyl 5 MG Tab PO PRN; +Cyclobenzaprine 10 MG Tab PO PRN; +Dexamethasone 4 MG/ML 5 ML MDV ONE; +Ketamine 500 mg/10 ML MDV ONE; +Lactated Ringers 1,000 ML IV SCH; +Lidocaine 1% 4 ML ONE; +Magnesium Hydroxide 400 MG/5 ML Susp 30 ML Cup PO PRN; +Midazolam 1 MG/ML 2 ML SDV ONE; +Morphine 2 MG/ML Syringe IVPUSH PRN; +Naloxone 0.4 MG/ML SDV IVPUSH PRN; +Ondansetron 4 MG/2 ML SDV IVPUSH PRN; +Propofol 200 MG/20 ML SDV ONE; +Sennosides 8.6 MG Tab PO PRN; +ceFAZolin 1 GM Vial ONE; +fentaNYL 100 MCG/2 ML SDV ONE; +oxyCODONE ER 10 MG TAB.ER PO SCH
[2020-03-01] MEDS ORDERED: Iodine/Sodium Iodide 2% Tincture 30 ML Bottle ONE (09:50)
[2020-03-01] MEDS ORDERED: Vancomycin 1 GM SDV ONE (09:50)
--- NOTE | 2020-03-01 10:00 | PCM.PREANE ---
Preanesthetic Assessment - Procedure Proposed Procedure: Left Total Shoulder Replacement - Anesthesia/Transfusion/Family Hx Anesthesia History: Prior Anesthesia Without Reaction Family History of Anesthesia Reaction: No Transfusion History: No Prior Transfusion(s) Intubation History: Unknown - Review of Systems General: No Symptoms Pulmonary: No Symptoms Cardiovascular: No Symptoms Gastrointestinal: No Symptoms Neurological: No Symptoms (Lumbar Fusion ) Other: Reports: None - Physical Assessment NPO Status Date: 02/29/20 NPO Status Time: 23:00 Vital Signs: Last Vital Signs Temp 36.6 C 03/01/20 09:02 Pulse Resp 16 03/01/20 09:02 BP 147/91 H 03/01/20 09:02 Pulse Ox 99 03/01/20 09:02 Weight: 88 kg ASA Class: 1 Mental Status: Alert & Oriented x3 Airway Class: Mallampati = 2 Dentition: Reports: Normal Dentition Thyro-Mental Finger Breadths: 3 Mouth Opening Finger Breadths: 3 ROM/Head Extension: Full Lungs: Clear to Auscultation, Normal Respiratory Effort - Lab Values: Laboratory Last Values SARS Virus RNA (PCR) Negative (NEGATIVE) 02/28/20 10:30 MRSA (PCR) Negative 02/15/20 15:11 - Allergies Allergies/Adverse Reactions: Allergies Allergy/AdvReac Type Severity Reaction Status Date / Time No Known Allergies Allergy Verified 02/29/20 15:40 - Anesthesia Plan Pre-Op Medication Ordered: Anxiolytic - Acknowledgements Anesthesia Type Planned: General Anesthesia, Regional Block (Interscalene Nerve Block) Pt an Appropriate Candidate for the Planned Anesthesia: Yes Alternatives and Risks of Anesthesia Discussed w Pt/Guardian: Yes Pt/Guardian Understands and Agrees with Anesthesia Plan: Yes PreAnesthesia Questionnaire HEENT History: Reports: Impaired Vision Other HEENT History: wears glasses Cardiovascular History: Reports: High Cholesterol Respiratory History: Reports: None Gastrointestinal History: Reports: None Genitourinary History: Reports: None [employer] History: Reports: None Musculoskeletal History: Reports: Arthritis, Other (See Below) Other Musculoskeletal History: right hip pain Neurological History: Reports: None Psychiatric History: Reports: Other (See Below) Other Psychiatric History: atypical nevus, skin lesion Endocrine/Metabolic History: Reports: None Hematologic History: Reports: None Immunologic History: Reports: None Oncologic (Cancer) History: Reports: None Dermatologic History: Reports: None - Infectious Disease History Infectious Disease History: Reports: None - Past Surgical History Head Surgeries/Procedures: Reports: None HEENT Surgical History: Reports: Adenoidectomy, Naso-Sinus Surgery, Tonsillectomy Cardiovascular Surgical History: Reports: None Respiratory Surgical History: Reports: None GI Surgical History: Reports: Appendectomy, Colonoscopy Female Surgical History: Reports: None Male Surgical History: Reports: None Endocrine Surgical History: Reports: None Neurological Surgical History: Reports: Laminectomy Other Neurological Surgeries/Procedures: fused from L2-L6 Musculoskeletal Surgical History: Reports: Arthroscopic Knee, Hip Replacement, Knee Replacement, Other (See Below) Other Musculoskeletal Surgeries/Procedures:: osteoarthritis L knee, L knee pain , R hip pain, bunionectomy L foot, Left knee surgery x 2, nose surgery x 4, R rotator cuff repair 1998, back surgery x 3. Oncologic Surgical History: Reports: None Dermatological Surgical History: Reports: None - SUBSTANCE USE Smoking Status *Q: Never Smoker Second Hand Smoke Exposure: No Recreational Drug Use History: No - HOME MEDS Home Medications: Home Meds Cholecalciferol (Vitamin D3) [Vitamin D3] 8,000 unit PO DAILY 02/29/20 [History] traMADol [Ultram] 50 mg PO Q6H PRN 02/29/20 [History] - CURRENT (IN HOUSE) MEDS Current Meds: Current Medications Acetaminophen (Tylenol) 975 mg PO ONETIME [facility] Stop: 03/01/20 12:00 Last Admin: 03/01/20 09:35 Dose: 975 mg Aspirin (Ecotrin) 325 mg PO DAILY [facility] Bisacodyl (Dulcolax) 5 mg PO DAILY PRN PRN Reason: Constipation Cyclobenzaprine HCl (Flexeril) 10 mg PO TID PRN PRN Reason: Spasms Docusate Sodium (Colace) 100 mg PO BID [facility] Famotidine (Pepcid) 20 mg PO Q12H [facility] Lactated Ringer's (Ringers, Lactated) 1,000 mls @ 125 mls/hr IV ASDIRECTED [facility] Stop: 03/01/20 23:00 Last Admin: 03/01/20 09:36 Dose: 125 mls/hr Cefazolin Sodium/Dextrose 2 gm (/ Premix) 50 mls @ 100 mls/hr IV Q8H [facility] Stop: 03/01/20 23:14 Ketorolac Tromethamine (Toradol) 15 mg IVPUSH Q6H PRN PRN Reason: Pain Lidocaine/Sodium Bicarbonate (Buffered Lidocaine 1% In Ns 8.4%) 0.25 ml IDERM ONETIME PRN PRN Reason: Prior to IV Start Stop: 03/01/20 23:00 Last Admin: 03/01/20 09:36 Dose: 0.25 ml Magnesium Hydroxide (Milk Of Magnesia) 30 ml PO BID PRN PRN Reason: Constipation Morphine Sulfate (Morphine) 2 mg IVPUSH Q2H PRN PRN Reason: Breakthrough Pain Naloxone HCl (Narcan) 0.1 mg IVPUSH Q5M PRN PRN Reason: Oversedation Ondansetron HCl (Zofran) 4 mg IVPUSH Q6H PRN PRN Reason: Nausea/Vomiting Oxycodone HCl (Oxycontin) 10 mg PO ONETIME [facility] Stop: 03/01/20 12:00 Last Admin: 03/01/20 09:35 Dose: 10 mg Oxycodone/Acetaminophen (Percocet 325-5 Mg) 1 - 2 tab PO Q4H PRN PRN Reason: Pain Pregabalin (Lyrica) 50 mg PO ONETIME [facility] Stop: 03/01/20 12:00 Last Admin: 03/01/20 09:35 Dose: 50 mg Senna (Senna) 8.6 mg PO BID PRN PRN Reason: Constipation Sodium Chloride (Saline Flush) 10 ml FLUSH ASDIRECTED PRN PRN Reason: Keep Vein Open Stop: 03/01/20 23:00 Discontinued Medications Cefazolin Sodium (Ancef) Confirm Administered Dose 2 gm .ROUTE .STK-MED ONE Stop: 03/01/20 08:17 Dexamethasone (Dexamethasone) Confirm Administered Dose 20 mg .ROUTE .STK-MED ONE Stop: 03/01/20 08:17 Epinephrine HCl (Adrenalin) Confirm Administered Dose 1 mg .ROUTE .STK-MED ONE Stop: 03/01/20 06:49 Fentanyl (Sublimaze) Confirm Administered Dose 100 mcg .ROUTE .STK-MED ONE Stop: 03/01/20 08:14 Lidocaine HCl (Xylocaine-Mpf 1%) Confirm Administered Dose 4 mls @ as directed .ROUTE .STK-MED ONE Stop: 03/01/20 06:49 Lidocaine HCl (Xylocaine-Mpf 1%) Confirm Administered Dose 4 mls @ as directed .ROUTE .STK-MED ONE Stop: 03/01/20 08:17 Iodine (Iodine 2% Mild Tincture) Confirm Administered Dose 30 ml .ROUTE .STK- MED ONE Stop: 03/01/20 09:51 Ketamine HCl (Ketalar) Confirm Administered Dose 500 mg .ROUTE .STK-MED ONE Stop: 03/01/20 08:14 Midazolam HCl (Versed 1 Mg/Ml) Confirm Administered Dose 2 mg .ROUTE .STK-MED ONE Stop: 03/01/20 08:14 Propofol (Diprivan 20 Ml) Confirm Administered Dose 600 mg .ROUTE .STK-MED ONE Stop: 03/01/20 08:14 Ropivacaine (Naropin 0.5%) Confirm Administered Dose 30 ml .ROUTE .STK-MED ONE Stop: 03/01/20 06:49 Tranexamic Acid (Cyklokapron) Confirm Administered Dose 1,000 mg .ROUTE .STK- MED ONE Stop: 03/01/20 09:51 Vancomycin HCl (Vancomycin) Confirm Administered Dose 1 gm .ROUTE .STK-MED ONE Stop: 03/01/20 09:51
--- NOTE | 2020-03-01 10:04 | PCM.SN.2 ---
- Free Text/Narrative Note: Anesthesia Note: Interscalene Nerve Block Date: 03/01/2020 Time Out: 908 Start: 918 Stop: 928 Surgical Procedure: Left Reverse Total Shoulder Arthroplasty Current Procedure: Left interscalene block under US guidance for postoperative pain control requested by Dr. Quach. Patient chart reviewed, risk/benefits discussed with patient, consent obtained. Patient positioned supine, monitors/alarms on, oxygen placed via nasal cannula at 2 LPM. IV sedation administered: Versed 2mg IV Fentanyl 50mcg IV Left shoulder prepped with chloraprep x2. Sterile drapes placed with aseptic technique. Under US guidance (sterile US sleeve) left subclavian artery visualized along with the brachial plexus. Plexus followed cephalad up to C6 cricoid level, and area localized with 2mls of 1% lidocaine. 22gauge 2 inch stimiplex needle inserted under US and guided to brachial plexus C5-C6 trunks with 0.44mV with stimulation of biceps noted. Stimulation abolished at 0.2mVs. with 1ml of Normal Saline injected to confirm needle not placed intraneurally. Incremental injection of 5mls with negative aspiration prior to each injection of 0.5% ropivacaine with 1:200,000 epinephrine. Total volume=30mls. Please refer to nurses notes for vital signs, patient tolerated procedure well. Geetha Garrison DIRECTOR [employer]
[2020-03-01] MEDS ORDERED: fentaNYL 250 MCG/5 ML SDV ONE (10:17)
[2020-03-01] MEDS ORDERED: HYDROmorphone 0.5 MG/0.5 ML Syringe ONE (10:56)
[2020-03-01] MEDS ORDERED: Ketorolac 30 MG/ML SDV ONE (11:21)
[2020-03-01] MEDS ORDERED: Lactated Ringers 1,000 ML ONE ×2 (11:42→12:26)
[2020-03-01] MEDS ORDERED: HYDROmorphone 0.5 MG/0.5 ML Syringe IVPUSH PRN (11:50)
[2020-03-01] MEDS ORDERED: fentaNYL 100 MCG/2 ML SDV IVPUSH PRN (11:50)
[2020-03-01] MEDS ORDERED: Ondansetron 4 MG/2 ML SDV IVPUSH PRN (11:50)
--- NOTE | 2020-03-01 12:44 | CR ---
Left shoulder: 3 fluoroscopic spot views left shoulder obtained utilizing C-arm device. Study shows placement of a reverse left shoulder prosthesis. Fluoroscopy time is given a 6.3 seconds. Impression: 1. Procedural study as noted above. Diagnostic code #2 This report was dictated in MDT
--- NOTE | 2020-03-01 12:55 | PCM.POSTAN ---
POST ANESTHESIA ASSESSMENT - MENTAL STATUS Mental Status: Alert, Oriented - VITAL SIGNS Vital Signs: Last Vital Signs Temp 36.6 C 03/01/20 09:02 Pulse Resp 16 03/01/20 09:02 BP 147/91 H 03/01/20 09:02 Pulse Ox 99 03/01/20 09:02 - RESPIRATORY Respiratory Status: Respiratory Rate WNL, Airway Patent, O2 Saturation Stable, Supplemental Oxygen - CARDIOVASCULAR CV Status: Pulse Rate WNL, Blood Pressure Stable - GASTROINTESTINAL GI Status: No Symptoms - PAIN Pain Score: 0 - POST OP HYDRATION Hydration Status: Adequate & Stable
--- NOTE | 2020-03-01 13:37 | CR ---
Left shoulder: Single view of the left shoulder was obtained. Comparison: Operative study performed earlier on the same day (11:43 AM). Reverse left shoulder prosthesis is seen. Components are aligned. Underlying bony structures are intact. Impression: 1. Left shoulder prosthesis. Diagnostic code #2 This report was dictated in MDT
[2020-03-01] MEDS: ceFAZolin 2 GM in Premix Bag 1 BAG IV SCH (15:44)
[2020-03-01] MEDS: Acetaminophen/oxyCODONE 325-5 MG Tab PO PRN ×2 (15:44→20:14)
[2020-03-01] MEDS: Docusate Sodium 100 MG Cap PO SCH (20:12)
[2020-03-01] MEDS: Famotidine 20 MG Tab PO SCH (20:13)
[2020-03-01] MEDS: Ketorolac 15 MG/ML SDV IVPUSH PRN (20:14)
[2020-03-02] MEDS: ceFAZolin 2 GM in Premix Bag 1 BAG IV SCH ×2 (01:03→09:33)
[2020-03-02] MEDS: Acetaminophen/oxyCODONE 325-5 MG Tab PO PRN ×4 (01:03→14:01)
[2020-03-02] MEDS: Ketorolac 15 MG/ML SDV IVPUSH PRN (06:07)
--- NOTE | 2020-03-02 07:38 | PCM48HPAN ---
Post Anesthesia Note - EVALUATION WITHIN 48HRS OF ANESTHETIC Vital Signs in Normal Range: Yes Patient Participated in Evaluation: Yes Respiratory Function Stable: Yes Airway Patent: Yes Cardiovascular Function Stable: Yes Hydration Status Stable: Yes Pain Control Satisfactory: Yes Nausea and Vomiting Control Satisfactory: Yes Mental Status Recovered: Yes Vital Signs: Last Vital Signs Temp 98.1 F 03/01/20 20:26 Pulse 73 03/02/20 01:40 Resp 18 03/02/20 01:40 BP 114/93 H 03/02/20 01:40 Pulse Ox 97 03/02/20 01:40 - COMMENTS/OBSERVATIONS Free Text/Narrative:: Has no pain and is doing well- eating breakfast.
--- NOTE | 2020-03-02 07:57 | PCM.SURGPN ---
- General Info Date of Service: 03/02/20 POD#: 1 Functional Status: Reports: Pain Controlled, Tolerating Diet, Ambulating, Urinating, Incentive Spirometry, Other (The pt states he has no pain.) - Patient Data Vitals - Most Recent: Last Vital Signs Temp 98.1 F 03/01/20 20:26 Pulse 73 03/02/20 01:40 Resp 18 03/02/20 01:40 BP 114/93 H 03/02/20 01:40 Pulse Ox 97 03/02/20 01:40 Weight - Most Recent: 204 lb 4.8 oz I&O - Last 24 Hours: Intake & Output 03/01/20 03/02/20 03/02/20 22:59 06:59 14:59 Intake Total 1760 1250 Output Total 0 2100 Balance 1760 -850 Lab Results Last 24 Hrs: Laboratory Results - last 24 hr 03/02/20 03/02/20 Range/Units 06:05 06:05 WBC 15.09 H (4.23-9.07) K/mm3 RBC 4.60 L (4.63-6.08) M/mm3 Hgb 13.6 L (13.7-17.5) gm/dl Hct 40.8 (40.1-51.0) % MCV 88.7 (79.0-92.2) fl MCH 29.6 (25.7-32.2) pg MCHC 33.3 (32.2-35.5) g/dl RDW Std Deviation 43.0 (35.1-43.9) fL Plt Count 224 (163-337) K/mm3 MPV 11.2 (9.4-12.3) fl Sodium 137 (136-145) mEq/L Potassium 4.5 (3.5-5.1) mEq/L Chloride 101 (98-107) mEq/L Carbon Dioxide 27 (21-32) mEq/L Anion Gap 13.5 (5-15) BUN 21 H (7-18) mg/dL Creatinine 1.2 (0.7-1.3) mg/dL Est Cr Clr Drug Dosing 64.64 mL/min Estimated GFR (MDRD) > 60 (>60) mL/min BUN/Creatinine Ratio 17.5 (14-18) Glucose 149 H (80-115) mg/dL Calcium 9.0 (8.5-10.1) mg/dL Total Bilirubin 1.3 H (0.2-1.0) mg/dL AST 18 (15-37) U/L ALT 27 (16-63) U/L Alkaline Phosphatase 67 (46-116) U/L Total Protein 6.8 (6.4-8.2) g/dl Albumin 3.7 (3.4-5.0) g/dl Globulin 3.1 gm/dL Albumin/Globulin Ratio 1.2 (1-2) Med Orders - Current: Current Medications Aspirin (Ecotrin) 325 mg PO DAILY [facility] Bisacodyl (Dulcolax) 5 mg PO DAILY PRN PRN Reason: Constipation Cholecalciferol (Vitamin D3) 5,000 unit PO DAILY [facility] Cyclobenzaprine HCl (Flexeril) 10 mg PO TID PRN PRN Reason: Spasms Last Admin: 03/02/20 01:04 Dose: 10 mg Docusate Sodium (Colace) 100 mg PO BID [facility] Last Admin: 03/01/20 20:12 Dose: 100 mg Famotidine (Pepcid) 20 mg PO Q12H [facility] Last Admin: 03/01/20 20:13 Dose: Not Given Cefazolin Sodium/Dextrose 2 gm (/ Premix) 50 mls @ 100 mls/hr IV Q8H [facility] Stop: 03/02/20 08:59 Last Admin: 03/02/20 01:03 Dose: 100 mls/hr Ketorolac Tromethamine (Toradol) 15 mg IVPUSH Q6H PRN PRN Reason: Pain Last Admin: 03/02/20 06:07 Dose: 15 mg Magnesium Hydroxide (Milk Of Magnesia) 30 ml PO BID PRN PRN Reason: Constipation Morphine Sulfate (Morphine) 2 mg IVPUSH Q2H PRN PRN Reason: Breakthrough Pain Naloxone HCl (Narcan) 0.1 mg IVPUSH Q5M PRN PRN Reason: Oversedation Ondansetron HCl (Zofran) 4 mg IVPUSH Q6H PRN PRN Reason: Nausea/Vomiting Oxycodone/Acetaminophen (Percocet 325-5 Mg) 1 - 2 tab PO Q4H PRN PRN Reason: Pain Last Admin: 03/02/20 06:06 Dose: 2 tab Senna (Senna) 8.6 mg PO BID PRN PRN Reason: Constipation Discontinued Medications Acetaminophen (Tylenol) 975 mg PO ONETIME [facility] Stop: 03/01/20 12:00 Last Admin: 03/01/20 09:35 Dose: 975 mg Cefazolin Sodium (Ancef) Confirm Administered Dose 2 gm .ROUTE .STK-MED ONE Stop: 03/01/20 08:17 Dexamethasone (Dexamethasone) Confirm Administered Dose 20 mg .ROUTE .STK-MED ONE Stop: 03/01/20 08:17 Epinephrine HCl (Adrenalin) Confirm Administered Dose 1 mg .ROUTE .STK-MED ONE Stop: 03/01/20 06:49 Fentanyl (Sublimaze) Confirm Administered Dose 100 mcg .ROUTE .STK-MED ONE Stop: 03/01/20 08:14 Fentanyl (Sublimaze) Confirm Administered Dose 250 mcg .ROUTE .STK-MED ONE Stop: 03/01/20 10:18 Fentanyl (Sublimaze) 50 mcg IVPUSH Q5M PRN PRN Reason: Pain Stop: 03/01/20 14:00 Hydromorphone HCl (Dilaudid) Confirm Administered Dose 1 mg .ROUTE .STK-MED ONE Stop: 03/01/20 10:57 Hydromorphone HCl (Dilaudid) 0.5 mg IVPUSH Q10M PRN PRN Reason: Pain (severe 7-10) Stop: 03/01/20 14:00 Lactated Ringer's (Ringers, Lactated) 1,000 mls @ 125 mls/hr IV ASDIRECTED [facility] Stop: 03/01/20 23:00 Last Admin: 03/01/20 09:36 Dose: 125 mls/hr Lidocaine HCl (Xylocaine-Mpf 1%) Confirm Administered Dose 4 mls @ as directed .ROUTE .STK-MED ONE Stop: 03/01/20 06:49 Lidocaine HCl (Xylocaine-Mpf 1%) Confirm Administered Dose 4 mls @ as directed .ROUTE .STK-MED ONE Stop: 03/01/20 08:17 Lactated Ringer's (Ringers, Lactated) Confirm Administered Dose 1,000 mls @ as directed .ROUTE .STK-MED ONE Stop: 03/01/20 11:43 Lactated Ringer's (Ringers, Lactated) Confirm Administered Dose 1,000 mls @ as directed .ROUTE .STK-MED ONE Stop: 03/01/20 12:27 Iodine (Iodine 2% Mild Tincture) Confirm Administered Dose 30 ml .ROUTE .STK- MED ONE Stop: 03/01/20 09:51 Last Admin: 03/01/20 12:01 Dose: 18 ml Ketamine HCl (Ketalar) Confirm Administered Dose 500 mg .ROUTE .STK-MED ONE Stop: 03/01/20 08:14 Ketorolac Tromethamine (Toradol) Confirm Administered Dose 60 mg .ROUTE .STK- MED ONE Stop: 03/01/20 11:22 Lidocaine/Sodium Bicarbonate (Buffered Lidocaine 1% In Ns 8.4%) 0.25 ml IDERM ONETIME PRN PRN Reason: Prior to IV Start Stop: 03/01/20 23:00 Last Admin: 03/01/20 09:36 Dose: 0.25 ml Midazolam HCl (Versed 1 Mg/Ml) Confirm Administered Dose 2 mg .ROUTE .STK-MED ONE Stop: 03/01/20 08:14 Ondansetron HCl (Zofran) 4 mg IVPUSH ONETIME PRN PRN Reason: Nausea/Vomiting Stop: 03/01/20 15:00 Oxycodone HCl (Oxycontin) 10 mg PO ONETIME [facility] Stop: 03/01/20 12:00 Last Admin: 03/01/20 09:35 Dose: 10 mg Pregabalin (Lyrica) 50 mg PO ONETIME [facility] Stop: 03/01/20 12:00 Last Admin: 03/01/20 09:35 Dose: 50 mg Propofol (Diprivan 20 Ml) Confirm Administered Dose 600 mg .ROUTE .STK-MED ONE Stop: 03/01/20 08:14 Ropivacaine (Naropin 0.5%) Confirm Administered Dose 30 ml .ROUTE .STK-MED ONE Stop: 03/01/20 06:49 Sodium Chloride (Saline Flush) 10 ml FLUSH ASDIRECTED PRN PRN Reason: Keep Vein Open Stop: 03/01/20 23:00 Tranexamic Acid (Cyklokapron) Confirm Administered Dose 1,000 mg .ROUTE .STK- MED ONE Stop: 03/01/20 09:51 Last Admin: 03/01/20 12:16 Dose: 1,000 mg Vancomycin HCl (Vancomycin) Confirm Administered Dose 1 gm .ROUTE .STK-MED ONE Stop: 03/01/20 09:51 Last Admin: 03/01/20 12:10 Dose: 1 gm - Exam Wound/Incisions: Dressing Dry and Intact General: Alert, Cooperative, No Acute Distress Lungs: Normal Respiratory Effort Extremities: Other (NVS intact for LUE. ) Sepsis Event Note - Evaluation Sepsis Screening Result: No Definite Risk - Focused Exam Vital Signs: Vital Signs Temp Pulse Resp BP Pulse Ox 03/02/20 01:40 73 18 114/93 H 97 03/01/20 20:26 98.1 F 81 18 129/70 99 Date Exam was Performed: 03/02/20 Time Exam was Performed: 07:56 - Problem List Review Problem List Initiated/Reviewed/Updated: Yes - My Orders Last 24 Hours: Active Orders 24 hr Category Date Time Status Communication Order [RC] ASDIRECTED Care 03/01/20 11:50 Inactive Ready for Discharge [RC] PER UNIT ROUTINE Care 03/02/20 07:55 Ordered Regular Diet [DIET] Diet 03/01/20 Lunch Active Aspirin [Ecotrin] Med 03/02/20 09:00 Active 325 mg PO DAILY Cholecalciferol (Vitamin D3) [Vitamin D3] Med 03/02/20 09:00 Active 5,000 unit PO DAILY Docusate Sodium [Colace] Med 03/01/20 21:00 Active 100 mg PO BID Famotidine [Pepcid] Med 03/01/20 21:00 Active 20 mg PO Q12H Ketorolac [Toradol] Med 03/01/20 17:30 Active 15 mg IVPUSH Q6H PRN ceFAZolin [Ancef] 2 gm Med 03/01/20 16:30 Active Premix Bag 1 bag IV Q8H Medication Orders Aspirin (Ecotrin) 325 mg PO DAILY [facility] Bisacodyl (Dulcolax) 5 mg PO DAILY PRN PRN Reason: Constipation Cholecalciferol (Vitamin D3) 5,000 unit PO DAILY [facility] Cyclobenzaprine HCl (Flexeril) 10 mg PO TID PRN PRN Reason: Spasms Last Admin: 03/02/20 01:04 Dose: 10 mg Docusate Sodium (Colace) 100 mg PO BID [facility] Last Admin: 03/01/20 20:12 Dose: 100 mg Famotidine (Pepcid) 20 mg PO Q12H [facility] Last Admin: 03/01/20 20:13 Dose: Not Given Cefazolin Sodium/Dextrose 2 gm (/ Premix) 50 mls @ 100 mls/hr IV Q8H [facility] Stop: 03/02/20 08:59 Last Admin: 03/02/20 01:03 Dose: 100 mls/hr Infusion: 03/01/20 16:14 Dose: 100 mls/hr Admin: 03/01/20 15:44 Dose: 100 mls/hr Ketorolac Tromethamine (Toradol) 15 mg IVPUSH Q6H PRN PRN Reason: Pain Last Admin: 03/02/20 06:07 Dose: 15 mg Admin: 03/01/20 20:14 Dose: 15 mg Magnesium Hydroxide (Milk Of Magnesia) 30 ml PO BID PRN PRN Reason: Constipation Morphine Sulfate (Morphine) 2 mg IVPUSH Q2H PRN PRN Reason: Breakthrough Pain Naloxone HCl (Narcan) 0.1 mg IVPUSH Q5M PRN PRN Reason: Oversedation Ondansetron HCl (Zofran) 4 mg IVPUSH Q6H PRN PRN Reason: Nausea/Vomiting Oxycodone/Acetaminophen (Percocet 325-5 Mg) 1 - 2 tab PO Q4H PRN PRN Reason: Pain Last Admin: 03/02/20 06:06 Dose: 2 tab Admin: 03/02/20 01:03 Dose: 2 tab Admin: 03/01/20 20:14 Dose: 2 tab Admin: 03/01/20 15:44 Dose: 2 tab Senna (Senna) 8.6 mg PO BID PRN PRN Reason: Constipation - Assessment Assessment (Free Text/Narrative):: POD#1 - left reverse TSA - Plan Plan (Free Text/Narrative):: 1. Hgb 13.9. 2. 325mg ASA PO BID, frequent mobility, TEDs. 3. Discharge to home today. 4. Outpatient therapy. The pt's case was discussed with Dr. Quach.
--- NOTE | 2020-03-02 07:59 | PCM.DCSUM1 ---
Discharge Summary - Hospital Course Brief History: Royer is a 59 yo male who underwent left reverse TSA with Dr. Quach on 03-01-2020. The procedure was completed under general anesthesia with regional block. The pt tolerated the procedure well and was admitted to the Medical-Surgical Unit. Medical management was provided by the Hospitalist service. The pt's Hospital course was uneventful. The pt's Hgb on POD#1 was 13.6. On POD#1, 325mg ASA daily was initiated for VTE prophylaxis. SCDs and TEDs were also ordered. A Mepilex dressing was placed at the incision site at the time of surgery and remained clean and dry. The pt participated in P.T. and O.T. and progressed well. On POD#1, the pt was deemed appropriate to discharge to home with his . - Discharge Data Discharge Date: 03/02/20 Discharge Disposition: Home, Self-Care 01 Condition: Good - Referral to Home Health Primary Care Physician: Chuck Velasco MD - Patient Summary/Data Consults: Consultations 03/01/20 06:38 OT Evaluation and Treatment [CONS] Routine PT Evaluation and Treatment [CONS] Routine - Patient Instructions Diet: Usual Diet as Tolerated Activity: Apply Ice, As Tolerated, Elevate Extremity Activity, Other: No forceful use of the surgical limb. Driving: Do Not Drive Showering/Bathing: May Shower Wound/Incision Care: Keep Operative Site/Wound Site Clean and Dry, Do NOT Change Dressing Notify Provider of: Fever, Increased Pain, Swelling and Redness, Drainage, Nausea and/or Vomiting Other/Special Instructions: Please get up and moving around EVERY HOUR while awake. This helps to prevent blood clots. Please have help with mobility as needed. Take a short walk in your home every hour while awake. Please take 325mg aspirin daily. The aspirin is being used for blood clot prevention and not for pain management so please do not miss a dose of the medication. You could use a medication like Pepcid or Tagamet and a medication like Prilosec or Nexium to protect your stomach while you are using the aspirin. At home, please complete the exercises that you learned during the Hospital stay. Schedule for physical or occupational therapy. Use the pain medication as needed. The medication may cause drowsiness and constipation. Contact your primary care provider for instructions if you are constipated. You may use a stool softener like docusate sodium or Colace 100mg twice daily and/or a laxative like Miralax daily for constipation. Increase your water and fiber intake while you are using the pain medication. Discontinue use of the pain medication as soon as able. Please do not use other medications that may cause drowsiness (other pain medications, anxiety pills, cold medications, sleeping pills, etc) while using the prescription pain medication. Do not use alcohol while using the pain medication. You may use acetaminophen or Tylenol for pain management, however, please ensure you are not using over 4000 mg or 4 grams of acetaminophen per day from all sources. Your pain medication has 325mg of acetaminophen per tablet. Wear the LIA hose during the day and you may remove these at night. Elevate the limb to decrease swelling. Place ice to the area often. Place a towel between your skin and the blue pad. Use the incentive spirometer often. Take deep breaths throughout the day. Please keep the dressing in place until follow-up. Notify the Clinic if the dressing becomes saturated. Increase your protein intake while you are healing. If you have diabetes, please closely monitor your blood sugars and notify your primary care provider with abnormal values. Elevated blood sugars increases the risk of infection. Call the Clinic with questions or concerns - [phone]. - Discharge Plan *PRESCRIPTION DRUG MONITORING PROGRAM REVIEWED*: No *COPY OF PRESCRIPTION DRUG MONITORING REPORT IN PATIENT SHAILESH: No Prescriptions/Med Rec: Acetaminophen/oxyCODONE [Percocet 325-5 MG] 1 - 2 tab PO Q4H PRN #60 tablet PRN Reason: Pain Aspirin [Ecotrin EC] 325 mg PO DAILY #30 tab.ec Cyclobenzaprine [Flexeril] 10 mg PO BID PRN #30 tablet PRN Reason: Spasms Home Medications: Home Meds Cholecalciferol (Vitamin D3) [Vitamin D3] 8,000 unit PO DAILY 02/29/20 [History] Acetaminophen/oxyCODONE [Percocet 325-5 MG] 1 - 2 tab PO Q4H PRN #60 tablet 02/14 [Rx] Aspirin [Ecotrin EC] 325 mg PO DAILY #30 tab.ec 03/02/20 [Rx] Cyclobenzaprine [Flexeril] 10 mg PO BID PRN #30 tablet 03/02/20 [Rx] Docusate Sodium [Colace] 100 mg PO BID cap 03/02/20 [Rx] Famotidine [Pepcid] 20 mg PO Q12H tablet 03/02/20 [Rx] Magnesium Hydroxide [Milk of Magnesia] 30 ml PO BID PRN cup 03/02/20 [Rx] Sennosides [Senna] 8.6 mg PO BID PRN tablet 03/02/20 [Rx] bisacodyL [Dulcolax] 5 mg PO DAILY PRN tablet 03/02/20 [Rx] Referrals: Jesi Bridges PA-C [Physician Pig Machine Operator Helper] - - Discharge Summary/Plan Comment DC Time >30 min.: No - Patient Data Vitals - Most Recent: Last Vital Signs Temp 98.1 F 03/01/20 20:26 Pulse 73 03/02/20 01:40 Resp 18 03/02/20 01:40 BP 114/93 H 03/02/20 01:40 Pulse Ox 97 03/02/20 01:40 Weight - Most Recent: 204 lb 4.8 oz I&O - Last 24 hours: Intake & Output 03/01/20 03/02/20 03/02/20 22:59 06:59 14:59 Intake Total 1760 1250 Output Total 0 2100 Balance 1760 -850 Lab Results - Last 24 hrs: Laboratory Results - last 24 hr 03/02/20 03/02/20 Range/Units 06:05 06:05 WBC 15.09 H (4.23-9.07) K/mm3 RBC 4.60 L (4.63-6.08) M/mm3 Hgb 13.6 L (13.7-17.5) gm/dl Hct 40.8 (40.1-51.0) % MCV 88.7 (79.0-92.2) fl MCH 29.6 (25.7-32.2) pg MCHC 33.3 (32.2-35.5) g/dl RDW Std Deviation 43.0 (35.1-43.9) fL Plt Count 224 (163-337) K/mm3 MPV 11.2 (9.4-12.3) fl Sodium 137 (136-145) mEq/L Potassium 4.5 (3.5-5.1) mEq/L Chloride 101 (98-107) mEq/L Carbon Dioxide 27 (21-32) mEq/L Anion Gap 13.5 (5-15) BUN 21 H (7-18) mg/dL Creatinine 1.2 (0.7-1.3) mg/dL Est Cr Clr Drug Dosing 64.64 mL/min Estimated GFR (MDRD) > 60 (>60) mL/min BUN/Creatinine Ratio 17.5 (14-18) Glucose 149 H (80-115) mg/dL Calcium 9.0 (8.5-10.1) mg/dL Total Bilirubin 1.3 H (0.2-1.0) mg/dL AST 18 (15-37) U/L ALT 27 (16-63) U/L Alkaline Phosphatase 67 (46-116) U/L Total Protein 6.8 (6.4-8.2) g/dl Albumin 3.7 (3.4-5.0) g/dl Globulin 3.1 gm/dL Albumin/Globulin Ratio 1.2 (1-2) Med Orders - Current: Current Medications Aspirin (Ecotrin) 325 mg PO DAILY [facility] Bisacodyl (Dulcolax) 5 mg PO DAILY PRN PRN Reason: Constipation Cholecalciferol (Vitamin D3) 5,000 unit PO DAILY [facility] Cyclobenzaprine HCl (Flexeril) 10 mg PO TID PRN PRN Reason: Spasms Last Admin: 03/02/20 01:04 Dose: 10 mg Docusate Sodium (Colace) 100 mg PO BID [facility] Last Admin: 03/01/20 20:12 Dose: 100 mg Famotidine (Pepcid) 20 mg PO Q12H [facility] Last Admin: 03/01/20 20:13 Dose: Not Given Cefazolin Sodium/Dextrose 2 gm (/ Premix) 50 mls @ 100 mls/hr IV Q8H [facility] Stop: 03/02/20 08:59 Last Admin: 03/02/20 01:03 Dose: 100 mls/hr Ketorolac Tromethamine (Toradol) 15 mg IVPUSH Q6H PRN PRN Reason: Pain Last Admin: 03/02/20 06:07 Dose: 15 mg Magnesium Hydroxide (Milk Of Magnesia) 30 ml PO BID PRN PRN Reason: Constipation Morphine Sulfate (Morphine) 2 mg IVPUSH Q2H PRN PRN Reason: Breakthrough Pain Naloxone HCl (Narcan) 0.1 mg IVPUSH Q5M PRN PRN Reason: Oversedation Ondansetron HCl (Zofran) 4 mg IVPUSH Q6H PRN PRN Reason: Nausea/Vomiting Oxycodone/Acetaminophen (Percocet 325-5 Mg) 1 - 2 tab PO Q4H PRN PRN Reason: Pain Last Admin: 03/02/20 06:06 Dose: 2 tab Senna (Senna) 8.6 mg PO BID PRN PRN Reason: Constipation Discontinued Medications Acetaminophen (Tylenol) 975 mg PO ONETIME [facility] Stop: 03/01/20 12:00 Last Admin: 03/01/20 09:35 Dose: 975 mg Cefazolin Sodium (Ancef) Confirm Administered Dose 2 gm .ROUTE .STK-MED ONE Stop: 03/01/20 08:17 Dexamethasone (Dexamethasone) Confirm Administered Dose 20 mg .ROUTE .STK-MED ONE Stop: 03/01/20 08:17 Epinephrine HCl (Adrenalin) Confirm Administered Dose 1 mg .ROUTE .STK-MED ONE Stop: 03/01/20 06:49 Fentanyl (Sublimaze) Confirm Administered Dose 100 mcg .ROUTE .STK-MED ONE Stop: 03/01/20 08:14 Fentanyl (Sublimaze) Confirm Administered Dose 250 mcg .ROUTE .STK-MED ONE Stop: 03/01/20 10:18 Fentanyl (Sublimaze) 50 mcg IVPUSH Q5M PRN PRN Reason: Pain Stop: 03/01/20 14:00 Hydromorphone HCl (Dilaudid) Confirm Administered Dose 1 mg .ROUTE .STK-MED ONE Stop: 03/01/20 10:57 Hydromorphone HCl (Dilaudid) 0.5 mg IVPUSH Q10M PRN PRN Reason: Pain (severe 7-10) Stop: 03/01/20 14:00 Lactated Ringer's (Ringers, Lactated) 1,000 mls @ 125 mls/hr IV ASDIRECTED [facility] Stop: 03/01/20 23:00 Last Admin: 03/01/20 09:36 Dose: 125 mls/hr Lidocaine HCl (Xylocaine-Mpf 1%) Confirm Administered Dose 4 mls @ as directed .ROUTE .STK-MED ONE Stop: 03/01/20 06:49 Lidocaine HCl (Xylocaine-Mpf 1%) Confirm Administered Dose 4 mls @ as directed .ROUTE .ST-MED ONE Stop: 03/01/20 08:17 Lactated Ringer's (Ringers, Lactated) Confirm Administered Dose 1,000 mls @ as directed .ROUTE .ST-MED ONE Stop: 03/01/20 11:43 Lactated Ringer's (Ringers, Lactated) Confirm Administered Dose 1,000 mls @ as directed .ROUTE .ST-MED ONE Stop: 03/01/20 12:27 Iodine (Iodine 2% Mild Tincture) Confirm Administered Dose 30 ml .ROUTE .ST- MED ONE Stop: 03/01/20 09:51 Last Admin: 03/01/20 12:01 Dose: 18 ml Ketamine HCl (Ketalar) Confirm Administered Dose 500 mg .ROUTE .ST-MED ONE Stop: 03/01/20 08:14 Ketorolac Tromethamine (Toradol) Confirm Administered Dose 60 mg .ROUTE .[facility]- MED ONE Stop: 03/01/20 11:22 Lidocaine/Sodium Bicarbonate (Buffered Lidocaine 1% In Ns 8.4%) 0.25 ml IDERM ONETIME PRN PRN Reason: Prior to IV Start Stop: 03/01/20 23:00 Last Admin: 03/01/20 09:36 Dose: 0.25 ml Midazolam HCl (Versed 1 Mg/Ml) Confirm Administered Dose 2 mg .ROUTE .ST-MED ONE Stop: 03/01/20 08:14 Ondansetron HCl (Zofran) 4 mg IVPUSH ONETIME PRN PRN Reason: Nausea/Vomiting Stop: 03/01/20 15:00 Oxycodone HCl (Oxycontin) 10 mg PO ONETIME [facility] Stop: 03/01/20 12:00 Last Admin: 03/01/20 09:35 Dose: 10 mg Pregabalin (Lyrica) 50 mg PO ONETIME [facility] Stop: 03/01/20 12:00 Last Admin: 03/01/20 09:35 Dose: 50 mg Propofol (Diprivan 20 Ml) Confirm Administered Dose 600 mg .ROUTE .STK-MED ONE Stop: 03/01/20 08:14 Ropivacaine (Naropin 0.5%) Confirm Administered Dose 30 ml .ROUTE .ST-MED ONE Stop: 03/01/20 06:49 Sodium Chloride (Saline Flush) 10 ml FLUSH ASDIRECTED PRN PRN Reason: Keep Vein Open Stop: 03/01/20 23:00 Tranexamic Acid (Cyklokapron) Confirm Administered Dose 1,000 mg .ROUTE .STK- MED ONE Stop: 03/01/20 09:51 Last Admin: 03/01/20 12:16 Dose: 1,000 mg Vancomycin HCl (Vancomycin) Confirm Administered Dose 1 gm .ROUTE .STK-MED ONE Stop: 03/01/20 09:51 Last Admin: 03/01/20 12:10 Dose: 1 gm
[2020-03-02] MEDS ORDERED: Cholecalciferol (Vitamin D3) 5,000 UNIT Tab PO SCH (09:00)
[2020-03-02] MEDS ORDERED: Aspirin 325 MG Tab.EC PO SCH (09:00)
[2020-03-02] MEDS: Docusate Sodium 100 MG Cap PO SCH (09:38)
[2020-03-02] MEDS: Famotidine 20 MG Tab PO SCH (09:38)
[2020-03-02 12:38] VITALS: BP 98/65; PULSE 65
--- NOTE | 2020-03-06 07:32 | PCM.OPNOTE ---
- General Post-Op/Procedure Note Date of Surgery/Procedure: 03/01/20 Operative Procedure(s): left reverse total shoulder arthroplasty Pre Op Diagnosis: left shoulder rotator cuff tear arthropathy Post-Op Diagnosis: Same Anesthesia Technique: General ET Tube, Regional Block Primary Surgeon: Praveen Quach Anesthesia Provider: Alexandria Garrison Cake Stripper: Jesi Bridges Cake Stripper: Leanne Shaw EBL in mLs: 200 Complications: None Condition: Good Free Text/Narrative:: 28 baseplate 36+4 glenosphere
--- NOTE | 2020-03-06 08:59 | OR ---
DATE OF OPERATION: 03/01/2020 SURGEON: Praveen Quach MD OPERATION PERFORMED: Left reverse total shoulder arthroplasty. PREOPERATIVE DIAGNOSIS: Left shoulder rotator cuff tear arthropathy. POSTOPERATIVE DIAGNOSIS: Left shoulder rotator cuff tear arthropathy. ANESTHESIA: General endotracheal intubation with regional interscalene block. ANESTHESIA PROVIDER: Lynn Ny. DIPPING MACHINE OPERATOR: Jesi Bridges PA-C, and Leanne Shaw LPN. ESTIMATED BLOOD LOSS: 200 mL. COMPLICATIONS: None. CONDITION: Stable. IMPLANTS: Jair reverse total shoulder system with 28 base plate and 36+ 4 glenosphere and +4 liner. DESCRIPTION OF PROCEDURE: The patient was identified in the preop holding area. Proper site was marked and identified by the surgeon. The patient was taken back to the operating theater, where after adequate anesthesia, the patient's left upper extremity was then sterilely prepped and draped in the usual sterile fashion. OR time-out was performed. The patient received 2 g IV Ancef. The patient was placed in reverse Trendelenburg position and standard deltopectoral incision was made, taken down to the cephalic vein. The cephalic vein was then identified and the deltoid with that was retracted laterally. The clavipectoral fascia was then incised and the conjoined tendon was retracted medially. Ligation of the medial circumflex humeral vessels was then undertaken. Biceps was then identified. Takedown of the biceps and a subpectoral tenodesis was then performed. Curved Liang scissors were then used all the way proximally to release the biceps up near the level of the glenoid. Peel down of the subscapularis tendon then was done and the humeral head was dislocated. Neck cut was then completed and found to be adequate. Attention was turned to the glenoid. Posterior and anterior retractors were then placed. Circumferential removal of the remaining biceps as well as labrum was then undertaken as well as peel down of the capsule off the glenoid using a Harley and Bovie. Once I had adequate exposure, guide pin was placed in a center-center position with roughly 5 degrees of inferior tilt. The peripheral reamer and central reamer were then utilized for the 20 mm glenoid baseplate. Once I had good smile sign, the glenoid baseplate was compressed into place. It had very good compression with the nonlocking screw and then inferior and superior locking screws were then placed to fix it to the glenoid. It was found to have adequate positioning. The 36+ 4 glenosphere was then impacted into place and was found to be adequately fixated. Attention was turned to the humerus. Starter awl was placed down the canal and I began to broach until the broach was found to have good fill proximally with good rotational and vertical stability. The calcar planer was then used on the humerus and the humeral implant trials were then placed. The patient was found to have adequate spiritism of range of motion as well as good tension of the conjoined tendon and deltoid with a +4 liner. At this time, the humeral components were constructed on the back table with +4 liner and they were impacted into place and locked. C-arm fluoroscopy was utilized throughout the procedure with both the trial implants and then C-arm fluoroscopy was utilized with the regular implant showing it to be well seated in good positioning. At this time, 1 L dilute Betadine solution was irrigated through the shoulder along with 3 L pulse lavage irrigation with Ancef. Topical tranexamic acid and vancomycin powder were applied. #2 FiberWire was used to tag the deltopectoral interval. 2-0 Vicryl was used subcutaneously and Prineo was used for the skin. The patient was placed in a sterile soft dressing and a pillow sling and sent to PACU in stable condition. [id number] /[id number]
== END 2020-03-02 14:10 | disposition home or self-care (01) | DRG 483 ==
LOC: UNDOADMIN 08:32 → JD.MS 08:32 → UNDOADMIN 08:40 → JD.MS 08:42
PROVIDERS: ADMIT Orthopaedic Surgery; ATTEND Orthopaedic Surgery
PROC: 0RRK00Z Replacement of Left Shoulder Joint with Reverse Ball and Socket Synthetic Substitute, Open Approach (ICD-10-PCS; principal; 2020-03-01)
DX: M19.012 Primary osteoarthritis, left shoulder (principal)
CPT/HCPCS: 01638; 36415; 64415; 73020-26-LT; 73020-LT; 76000; 76000-26; 80053; 85027; 87641; 97110-GP; 97161-GP; 97165-GO; 97535-GO; A9270-GY; C1713; C1776; J0171; J0690; J1100; J1170; J1885; J2001; J2250; J2704; J2795; J3010; J3370; J7120; U0002

== ENCOUNTER 2022-05-19 05:55 | Day surgery (SDC) | payer BC, OTHER ==
[~2022-05-19 05:55] MED LIST changes: -Acetaminophen 325 MG Tab PO SCH; -Bisacodyl 5 MG Tab PO PRN; -Cyclobenzaprine 10 MG Tab PO PRN; -Dexamethasone 4 MG/ML 5 ML MDV ONE; -EPINEPHrine 1 MG/ML SDV ONE; -Ketamine 500 mg/10 ML MDV ONE; -Lidocaine 1% 4 ML ONE; -Magnesium Hydroxide 400 MG/5 ML Susp 30 ML Cup PO PRN; -Midazolam 1 MG/ML 2 ML SDV ONE; -Morphine 2 MG/ML Syringe IVPUSH PRN; -Naloxone 0.4 MG/ML SDV IVPUSH PRN; -Ondansetron 4 MG/2 ML SDV IVPUSH PRN; -Pregabalin 25 MG Cap PO SCH; -Propofol 200 MG/20 ML SDV ONE; -Ropivacaine 0.5% 5 MG/ML 30 ML SDV ONE; -Sennosides 8.6 MG Tab PO PRN; +Sodium Chloride 0.9% 10 ML Syringe FLUSH SCH; -ceFAZolin 1 GM Vial ONE; -fentaNYL 100 MCG/2 ML SDV ONE; -oxyCODONE ER 10 MG TAB.ER PO SCH
[2022-05-19] MEDS ORDERED: Acetaminophen 325 MG Tab PO SCH (06:00)
[2022-05-19] MEDS ORDERED: oxyCODONE ER 10 MG TAB.ER PO SCH (06:00)
[2022-05-19] MEDS ORDERED: Pregabalin 25 MG Cap PO SCH (06:00)
[2022-05-19] MEDS ORDERED: Vancomycin 1 GM SDV ONE (06:24)
[2022-05-19] MEDS ORDERED: ceFAZolin 2 GM Vial ONE (06:30)
[2022-05-19] MEDS ORDERED: Rocuronium 50 MG/5 ML Vial ONE (06:30)
[2022-05-19] MEDS ORDERED: Lactated Ringers 1,000 ML ONE (06:30)
[2022-05-19] MEDS ORDERED: Propofol 200 MG/20 ML SDV ONE (06:30)
[2022-05-19] MEDS ORDERED: Lidocaine 1% 4 ML ONE (06:31)
[2022-05-19] MEDS ORDERED: Ondansetron 4 MG/2 ML SDV ONE (06:31)
[2022-05-19] MEDS ORDERED: fentaNYL 100 MCG/2 ML SDV ONE ×2 (06:31→08:05)
[2022-05-19] MEDS ORDERED: Midazolam 1 MG/ML 2 ML SDV ONE (06:31)
[2022-05-19] MEDS ORDERED: Ketorolac 30 MG/ML SDV ONE (06:31)
[2022-05-19] MEDS ORDERED: Dexamethasone 4 MG/ML 5 ML MDV ONE (06:31)
[2022-05-19] MEDS ORDERED: Ropivacaine 0.5% 5 MG/ML 30 ML SDV ONE (06:38)
[2022-05-19] MEDS ORDERED: EPINEPHrine 1 MG/ML SDV ONE (06:38)
[2022-05-19] MEDS ORDERED: ePHEDrine 50 MG/ML SDV ONE (07:44)
[2022-05-19] MEDS ORDERED: Ketamine 500 mg/10 ML MDV ONE (08:07)
[2022-05-19] MEDS ORDERED: Neostigmine Methylsulfate 10 MG/10 ML MDV ONE (08:39)
[2022-05-19] MEDS ORDERED: Acetaminophen/oxyCODONE 325-5 MG Tab PO PRN (08:46)
[2022-05-19] MEDS ORDERED: Ondansetron 4 MG/2 ML SDV IVPUSH PRN (09:00)
[2022-05-19] MEDS: fentaNYL 100 MCG/2 ML SDV IVPUSH PRN ×2 (09:10→09:28)
[2022-05-19] MEDS: HYDROmorphone 0.5 MG/0.5 ML Syringe IVPUSH PRN ×2 (09:15→09:27)
[2022-05-19 11:20] VITALS: BP 101/58; PULSE 62
== END 2022-05-19 11:48 | disposition home or self-care (01) ==
LOC: JD.SDS 05:55 → EDSTATUS 07:30 → JD.SDS 11:48
PROVIDERS: ATTEND Orthopaedic Surgery
DX: M19.011 Primary osteoarthritis, right shoulder (principal); E78.00 Pure hypercholesterolemia, unspecified; Z79.899 Other long term (current) drug therapy; Z98.890 Other specified postprocedural states
CPT/HCPCS: 23472; 73020; 76000; 97166; A9270; C1713; C1769; C1776; J0171; J0690; J1100; J1170; J1885; J2250; J2405; J2704; J2710; J2795; J3010; J3370; J3490; J7120; 01638; 64415; 76942